=== PATIENT | female | born 1950 | race Caucasian/White ===

== ENCOUNTER 2019-08-22 07:46 | Outpatient (CLI) | payer MEDICARE, OTHER, SELFPAY ==
--- NOTE | 2019-08-22 07:52 | MM_ITS ---
WS: [id number] BILATERAL DIGITAL SCREENING MAMMOGRAPHY WITH CAD CLINICAL INFORMATION: SCREENING HISTORY: Screening mammogram. No current complaints. COMPARISON: May 30, 2017 TECHNIQUE: Bilateral CC and MLO views. FINDINGS: The breasts are composed of heterogeneous fibroglandular density tissue, which can limit the detectio n of small underlying mass lesions. Lucent centered calcifications. No suspicious mass, asymmetry, ca lcifications, or architectural distortion. No evidence of malignancy. MM/[place] [id number] IMPRESSION: BI-RADS: 2-Benign FOLLOW UP: 1 Year Follow-up Recommend return to annual screening mammography.
== END 2019-08-22 07:47 | disposition home or self-care (01) ==
LOC: RADSHAW 07:50
PROVIDERS: Family Provider Family Medicine; PCP Family Medicine; Visit Provider Family Medicine
DX: Z12.31 Encounter for screening mammogram for malignant neoplasm of breast (principal)
CPT/HCPCS: 77067

== ENCOUNTER 2020-09-24 14:04 | Outpatient (CLI) | payer MEDICARE, OTHER, SELFPAY ==
--- NOTE | 2020-09-24 14:14 | MM_ITS ---
WS: [id number] BILATERAL DIGITAL SCREENING MAMMOGRAPHY WITH CAD CLINICAL INFORMATION: SCREENING HISTORY: Screening mammogram. No current complaints. COMPARISON: August 22, 2019 TECHNIQUE: Bilateral CC and MLO views. FINDINGS: The breasts are composed of heterogeneous fibroglandular density tissue, which can limit the detectio n of small underlying mass lesions. No suspicious mass, asymmetry, calcifications, or architectural d istortion. No evidence of malignancy. Punctate and lucent centered calcifications. MM/[place] [id number] IMPRESSION: BI-RADS: 2-Benign FOLLOW UP: 1 Year Follow-up Recommend return to annual screening mammography.
== END 2020-09-24 14:05 | disposition home or self-care (01) ==
LOC: RADSHAW 14:06
PROVIDERS: PCP Family Medicine; Visit Provider Family Medicine
DX: Z12.31 Encounter for screening mammogram for malignant neoplasm of breast (principal)
CPT/HCPCS: 77067

== ENCOUNTER 2021-04-30 08:45 | Outpatient (CLI) | payer MEDICARE, OTHER, SELFPAY ==
--- NOTE | 2021-04-30 09:15 | XR_ITS ---
WS: [id number] KUB, AP view, 04/30/2021 Clinical Data: calculus of kidney Comparison: KUB, 04/30/2019. Findings: No abnormal intraabdominal masses are seen. There is no dilatated small bowel or evidence of obstruct ion. There are small calcifications overlying the inferior pole of the right kidney. The left kidney is ob scured by bowel gas. There is a dextroscoliosis. There are clips in the right upper quadrant from a c holecystectomy. XR/XR KUB [id number] Impression: Probable right renal calculi.
== END 2021-04-30 08:46 | disposition home or self-care (01) ==
PROVIDERS: PCP Family Medicine; Visit Provider Urology
DX: N20.0 Calculus of kidney (principal)
CPT/HCPCS: 74018; 81003

== ENCOUNTER → 2022-06-01 13:45 | Outpatient (BNVA) | payer MEDICARE, OTHER, SELFPAY | PROVIDERS: PCP Family Medicine; Visit Provider Internal Medicine Cardiovascular Disease | DX: R07.9 Chest pain, unspecified (principal); I51.81 Takotsubo syndrome; I25.10 Atherosclerotic heart disease of native coronary artery without angina pectoris; I25.2 Old myocardial infarction; I34.0 Nonrheumatic mitral (valve) insufficiency; Z86.73 Personal history of transient ischemic attack (TIA), and cerebral infarction without residual deficits | CPT/HCPCS: 93005; 99204 ==

== ENCOUNTER 2022-07-15 08:02 | Outpatient (CLI) | payer MEDICARE, OTHER, SELFPAY ==
--- NOTE | 2022-07-15 | ECG_ITS ---
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 Interpretive Statements NAME OF STUDY: EXERCISE SESTAMIBI STRESS TEST INDICATION: Chest pain Baseline blood pressure of 117/72 mm Hg, heart rate of 96 beats per minute. EKG showed sinus rhythm with normal ST-Ts. ??? The patient exercised for 7 minutes and 4 seconds on a [standard Stephen protocol]. Patient attained a maximum heart rate of 165 beats per minute( 110 % of the maximum predicted heart rate) with a blood pressure at the peak exercise of 173/60 mm Hg. The EKG at the peak exercise revealed sinus tachycardia with no significant ST and T wave changes . Patient did [not have any chest pain or any significant arrhythmis with the exercise]??? During the recovery phase, there were no new changes. ??? Blood pressure at the end of the recovery phase was 114/71 mm Hg with a heart rate of 105 beats per minute. ??? CONCLUSION: 1. Normal EKG response to treadmill exercise. 2. No exercise-induced chest pain or cardiac arrhythmia. 3. Excellent exercise tolerance, attained a maximum of 10.2 METs. 4. Baseline normal blood pressure with normal response to exercise. 5. Perfusion scan will be documented separately. Electronically Signed On 07-15-2022 15:57:41 REAL ESTATE CONSULTANT by Melisa Mackey M.D. [id number]
--- NOTE | 2022-07-15 09:12 | NMCV_ITS ---
NM caty perf SPECT r/s* [id number] Gabi Orozco Age: 71 Gender: F : 1950 Exam Date: 07/15/2022 09:11 Ordering Phys: Melisa Mackey MD ([email or web address]) Technologist: HECTOR Best Exam Location: [facility] Indications: CHEST PAIN STRESS TEST Please see separate stress test report in [facility] for full findings IMAGE PROTOCOL Rest/Stress 1 Exercise Day Radiopharmaceutical Dose (mCi) Administration Site Administered by Rest: Tc-99m 10.9 IV HECTOR Best Sestamibi Stress:Tc-99m 32.6 IV HECTOR Benavidez Sestamibi Rest: 15-Jul-2022 60 Discovery 630 Stress: 15-Jul-2022 30 Discovery 630 Radiopharmaceutical was injected at 100% maximum heart rate. Radiopharmaceutical was injected at __ % maximum heart rate. SPECT RESULTS Technical Quality: Excellent Raw Data Analysis: Normal Image Corrections: No attenuation or motion correction applied Summed Stress Score: 0 Summed Rest Score: 6 Summed Difference Score: 0 PERFUSION FINDINGS Small sized perfusion abnormality of mid inferior and mid inferolateral guevara on rest images with improved tracer uptake on stress images. FUNCTIONAL RESULTS (calculated via Gated SPECT) Stress Image LV EF (%): 84 Stress EDV (mL):32 TID: 0.65 Stress ESV (mL):5 FUNCTIONAL FINDINGS: The left ventricle is normal in size. Transient Ischemia Dilatation of 0.65. The left ventricular ejection fraction is normal with a value of 84%. There is hyperdynamic left ventricular wall thickening. IMPRESSIONS 1. Myocardial perfusion imaging is normal. 2. Overall left ventricular systolic function is normal without regional wall motion abnormalities, LVEF=84%. 3. EKG portion of the study will be reported separately. 4. Scan indicates low risk for cardiac events. Melisa Mackey MD (Electronically Signed) Final Date: 15 July 2022 15:13 S
[2022-07-15 09:23] VITALS: BMI 22.1
[2022-07-15 10:03] VITALS: BP 114/71; PULSE 105
== END 2022-07-15 08:03 | disposition home or self-care (01) ==
LOC: CDL 08:04
PROVIDERS: PCP Family Medicine; Visit Provider Internal Medicine Cardiovascular Disease
DX: R07.9 Chest pain, unspecified (principal)
CPT/HCPCS: 36415; 78452; 93017; A9500

== ENCOUNTER 2022-07-19 14:14 | Inpatient (IN) | payer MEDICARE, OTHER, SELFPAY ==
[2022-07-19] VITALS (13 sets, daily range): BP systolic 120–133; BP diastolic 67–77; PULSE 78–95; RESP 14–17; TEMP 36.4–36.5; O2SAT 91–98; BMI 22.1
--- NOTE | 2022-07-19 14:32 | XRR_ITS ---
PROCEDURE INFORMATION: Exam: XR Left Ankle Exam date and time: 07/19/2022 2:39 PM Age: 71 years old Clinical indication: Pain and injury or trauma; Fall; Sprain or strain; Ankle; Left; Additional info: Fall, ankle pain TECHNIQUE: Imaging protocol: Radiologic exam of the Left ankle. Views: 1 or 2 views. COMPARISON: No relevant prior studies available. FINDINGS: Bones/joints: Mildly displaced oblique fractures through the distal tibia and fibula. Soft tissues: Normal. XR/XR ankle LT 2V [id number] IMPRESSION: Mildly displaced fractures through the distal tibia and fibula.
--- NOTE | 2022-07-19 14:46 | ED_ITS ---
HPI - Extremity Problem General: Chief complaint: Extremity Injury, Lower Stated complaint: FALL/ FX LOWER LEG Time Seen by Provider: 07/19/22 14:32 History of Present Illness: This 71-year-old female presents to the ER for evaluation of left ankle injury that occurred just prior to arrival. She was going to see her mother and while walking down a slope, she slipped in the grass and heard a pop on the left ankle. She was unable to put weight on the ankle. There is obvious deformity there. Patient denies any other injuries. Associated symptoms: Deny chest pain Review of Systems Const: Denies: chills, body aches or change in appetite Eyes: Denies: change in vision or eye discharge ENMT: Denies: throat pain, dental pain or nasal discharge Card: Denies: chest pain or lightheadedness : Denies: dysuria Musc: Reports: joint pain (left ankle) and limited range of motion (left ankle); Denies: neck pain or back pain Neuro: Denies: headache(s) or weakness in extremities Psych: Denies: depression Earl/Lymph: Denies: easy bruising All/Imm: Denies: urticaria, tongue swelling or facial swelling PFSH ED PFSH: Medical History (Updated 07/19/22 @ 16:24 by Angle Tavarez MD) History of CVA (cerebrovascular accident) History of [place] (myocardial infarction) History of nonmelanoma skin cancer Mitral valve regurgitation Palpitations Renal stones Stress-induced cardiomyopathy Surgical History H/O section S/P cholecystectomy S/P hysterectomy Status post laser lithotripsy of ureteral calculus Family History Father , 86 leukemia CHF (congestive heart failure) Cancer Mother Blood clot in vein Social History Smoking and tobacco status: never smoked History of recent travel: No Physical Exam Const: COMMON NORMALS: no acute distress, patient oriented x3, no limitations and alert HENMT: COMMON NORMALS: normocephalic HEAD & SCALP: normocephalic Eye: COMMON NORMALS: EOMs intact bilaterally Neck/C-Spine: COMMON NORMALS: full ROM and supple Chest: COMMONS NORMALS: normal inspection of the chest Resp: COMMON NORMALS: normal respiratory effort, No retractions, No use of accessory muscles and clear to auscultation bilaterally AUSCULTATION: clear to auscultation bilaterally Cardio: COMMON NORMALS: regular rate, regular rhythm and No murmurs present (Cardio) RATE: regular rate RHYTHM: regular rhythm GI: COMMON NORMALS: Normal to inspection, nondistended, normoactive bowel sounds present and non-tender : COMMON NORMALS: Yes no CVA tenderness BLADDER/KIDNEY EXAM: Yes no CVA tenderness Back/Pelvis: COMMON NORMALS: no CVA tenderness and no thoracic nor lumbar tenderness Extremity: GENERAL: Yes normal exam except as noted LEFT LOWER EXTREMITY: Yes ankle joint Left ankle: Yes inspection (Deformity), Yes palpation (Tenderness on palpation), Yes ROM (Markedly diminished) and Yes neurovascular exam (No distal neurovascular deficit) Neuro: COMMON NORMALS: patient oriented x3 and no focal motor deficits SENSORIUM/ORIENTATION: Yes alert Psych: COMMON NORMALS: mental status grossly normal and cooperative Course Reevaluation(s): Reevaluation #1: Case discussed with Dr. Cottrell regarding the left distal tib-fib fracture. He r ecommends splinting the leg and getting a CT scan of the ankle. Time: 15:05 Reevaluation #2: CT ankle confirms a mildly displaced oblique fracture of the distal tibial metadiaphysis. There is also comminuted fracture of the distal fibular diaphysis by 1.[address] Cottrell recommended that patient be admitted under the hospitalist and he will plan to fix the fracture tomorrow. Vital Signs: Vital signs: Vital Signs Temperature 97.7 F 07/19/22 14:15 Pulse Rate 78 07/19/22 14:15 Respiratory Rate 14 07/19/22 14:15 Blood Pressure 125/71 07/19/22 15:30 Pulse Oximetry 91 07/19/22 16:00 Oxygen Delivery Me thod 07/19/22 14:15 MDM - Extremity (Nontraumatic) Medical Decision Making Medical decision making: Patient presents to the ER for evaluation following a mechanical fall. Imaging studies reveal fractures of the left distal tibia and fibula. Dr. Cottrell will take patient to the OR tomorrow. She will be admitted to the hospitalist service with n.p.o. from midnight. Lab Data Radiology Impressions Ankle X-Ray 07/19/22 14:32 IMPRESSION: Mildly displaced fractures through the distal tibia and fibula. Ankle CT 07/19/22 15:03 IMPRESSION: 1. Mildly displaced oblique fracture distal tibial metadiaphysis. 2. Indeterminate but suspicious for vertical fractures extending to the metal room dental technician ior tibial malleolus. 3. Comminuted fracture involving the distal fibular diaphysis by 1.5 cm. 4. Additional nondisplaced fracture distal fibular tip. Knee X-Ray 07/19/22 15:04 IMPRESSION: No fracture identified. Quality of this exam is suboptimal and nearly nondiagnostic. Discharge Plan Discharge Patient Disposition: Admitted As Inpatient Clinical Impression: Fracture of tibia with fibula, closed Qualifiers: Encounter type: initial encounter Laterality: left Qualified Code(s): S82.202A - Unspecified fracture of shaft of left tibia, initial encounter for closed fracture Condition: Stable Coding Level of Care Code ED Green Building Engineer for [facility] Fwd Exam Comprehensive
[2022-07-19] MEDS: ondansetron 2 mg/ML SDV 2 mL 4 MG IVP (14:47)
--- NOTE | 2022-07-19 15:03 | CT_ITS ---
WS: [id number] CT LEFT ANKLE, NONCONTRAST. 3-D. HISTORY: fall, ankle fracture Technique: All CT scans at [facility] use at least one of these dose optimization techniques: automated exposure control; mA and/or kV adjustment per patient size (includes targeted exams where dose is matched to clinical indication); or iterative reconstruction. DLP: 149.28 mGy.cm COMPARISON: Radiograph 07/19/2022 Oblique fracture through the distal tibia involving the diaphysis into the metaphysis. Separation rad ng the fracture line by 7 mm. There is air in the marrow cavity. Suspect there is an additional fract ure extending vertically to the distal tibial articular surface posteriorly. This is best seen on the coronal reformats. Oblique comminuted fracture displaced by 1.5 cm involving the distal fibular diaphysis. Additional fr acture through the very distal fibular tip. The talus and calcaneus are intact. Moderate soft tissue edema surrounding the fracture. CT/CT ankle LT wo con* [id number] IMPRESSION: 1. Mildly displaced oblique fracture distal tibial metadiaphysis. 2. Indeterminate but suspicious for vertical fractures extending to the archivist ior tibial malleolus. 3. Comminuted fracture involving the distal fibular diaphysis by 1.5 cm. 4. Additional nondisplaced fracture distal fibular tip.
--- NOTE | 2022-07-19 15:04 | XR_ITS ---
WS: [id number] LEFT KNEE: 2 VIEW(S) TECHNIQUE: AP and lateral. HISTORY: fall COMPARISON: None available. No obvious fracture identified. Nondiagnostic lateral projection. This is very limited evaluation due to overlying external material. Mild narrowing medial compartment. Joint effusion cannot be excluded due to technique. No soft tissue abnormality. XR/XR knee LT 1-2V [id number] IMPRESSION: No fracture identified. Quality of this exam is suboptimal and nearly nondiagno stic.
--- NOTE | 2022-07-19 16:13 | PM.MISC ---
Miscellaneous Note Purpose of Documentation: Brief orthopedic note update: Orthopedics was consulted for patient sustaining a left lower extremity injury on a slip and fall low energy. She is found to have in the emergency department a displaced left distal tibia fracture as well as distal fibula fracture. Patient recommended to be splinted nonweightbearing and CT scan performed. There does appear to be a fracture line that extends into the tibial plafond. The main fracture fragment does appear to be amenable for intramedullary nail fixation with plan for left soft tissue violation. Plan will be for patient to be admitted by the hospitalist service orthopedics consulted. Patient last ate per the emergency department roughly 11?12 today. We will go ahead and allow her to eat this evening and she should be n.p.o. at midnight with plan for surgical fixation as planned for earlier mobility to her ankle as well as earlier weightbearing and better clinical alignment. Emergency department has been updated. A full consult note will follow in the morning. Patient to be n.p.o. at midnight. Hold a.m. anticoagulation. Feel free to contact myself Dr. Cottrell for any questions or concerns. Gary Cottrell, DO/orthopedic surgery
--- NOTE | 2022-07-19 17:12 | P.HP_ITS ---
Providers/Chief Complaint Primary Care Provider: Efrain Mckeon DO Chief Complaint: FALL/ FX LOWER LEG History of Present Illness Gabi Orozco is a 71 year old female with a past medical history of stress- induced cardiomyopathy, recent history of low probability stress test, history of CVA x2, hyperlipidemia, vitamin D deficiency, history of mitral valve regurg, who presents to [facility] after she twisted her left ankle and heard a pop and has a left ankle fracture. In terms of her medical history she tells me that early in June her and her family had COVID, she is doing well from it now and she does not need oxygen, denies hitting her head, denies hitting her hip, she can bear weight on the left ankle, no recent fevers, no chills, no cough, no dysuria, no chest pain, no palpitations she took her Plavix this morning, no history of other blood thinners Review of Systems Const: Denies: fever(s), chills, fatigue or malaise Eyes: Denies: change in vision ENMT: Denies: nasal congestion Card: Denies: chest pain or palpitations Resp: Denies: dyspnea, productive cough, non-productive cough or wheezing GI: Denies: abdominal pain, nausea, vomiting or melena : Denies: flank pain, dysuria or urinary frequency Musc: Denies: neck pain or back pain Skin/Breast: Denies: rash Neuro: Denies: headache(s), dizziness or vertigo Psych: Denies: anxiety Endo: Denies: polyuria or polydipsia Medications/Allergies Home Medications Medication Instructions Recorded Confirmed Last Taken Type cholecalciferol (vitamin D3) 25 25 mcg PO DAILY 07/24/19 07/19/22 Unknown History mcg (1,000 unit) capsule clopidogrel 75 mg tablet (Plavix) 75 mg PO DAILY 07/24/19 07/19/22 Unknown History levetiracetam 500 mg tablet 500 mg PO BID 07/24/19 07/19/22 Unknown History metoprolol succinate 50 mg 25 mg PO DAILY 07/24/19 07/19/22 Unknown History tablet,extended release 24 hr (Toprol XL) multivitamin 1 tab PO DAILY 07/24/19 07/19/22 Unknown History spironolactone 25 mg tablet 25 mg PO DAILY 07/24/19 07/19/22 Unknown History (Aldactone) nitroglycerin 0.4 mg sublingual 0.4 mg sublingual Q5M PRN chest 10/08/19 07/19/22 Unknown Rx tablet (Nitrostat) pain 30 days #25 tabs folic acid 1 mg tablet 1 mg PO DAILY 04/29/21 07/19/22 Unknown History lorazepam 0.5 mg tablet 0.5 mg PO TID stress/muscle spasm 03/16/22 07/19/22 Unknown Rx #90 tabs atorvastatin 20 mg tablet 20 mg PO DAILY 07/19/22 07/19/22 Unknown History Allergies Allergy/AdvReac Type Severity Reaction Status Date / Time levofloxacin [From Levaquin] Allergy Mild Rash Verified 07/19/22 17:00 PFSH Acute PFSH: Medical History History of CVA (cerebrovascular accident) History of [place] (myocardial infarction) History of nonmelanoma skin cancer Mitral valve regurgitation Palpitations Renal stones Stress-induced cardiomyopathy Surgical History H/O section S/P cholecystectomy S/P hysterectomy Status post laser lithotripsy of ureteral calculus Family History Father , 86 leukemia CHF (congestive heart failure) Cancer Mother Blood clot in vein Social History Smoking and tobacco status: never smoked History of recent travel: No Vitals/I&O/Wt Last Vital Signs Temp 97.7 F 07/19/22 14:15 Pulse 78 07/19/22 14:15 Resp 14 07/19/22 14:15 BP 125/71 07/19/22 15:30 Pulse Ox 91 07/19/22 16:00 O2 Del Method 07/19/22 14:15 Weight last 48 hrs Weight 56.699 kg Physical Exam Const: COMMON NORMALS: no acute distress and patient oriented x3 HENMT: COMMON NORMALS: normocephalic HEAD & SCALP: normocephalic Eye: COMMON NORMALS: Equal, round and reactive pupils present and EOMs intact bilaterally Neck/C-Spine: COMMON NORMALS: no JVD Lymph: LYMPHATIC: no lymphadenopathy noted Resp: COMMON NORMALS: normal respiratory effort, No retractions, No use of accessory muscles and clear to auscultation bilaterally AUSCULTATION: clear to auscultation bilaterally Cardio: COMMON NORMALS: no JVD, regular rate, regular rhythm, S1 normal heart sound present and S2 normal heart sound present RATE: regular rate RHYTHM: regular rhythm HEART SOUNDS: S1 normal heart sound present and S2 normal heart sound present GI: COMMON NORMALS: Normal to inspection, nondistended, normoactive bowel sounds present, Soft to palpation and non-tender PALPATION: Yes Soft to palpation : COMMON NORMALS: Yes no CVA tenderness Extremity: COMMON NORMALS: no calf tenderness and no pedal edema Neuro: COMMON NORMALS: patient oriented x3 and CN's II-XII intact bilaterally Psych: COMMON NORMALS: mental status grossly normal A&P Assessment and plan (1) Fracture of tibia with fibula, closed: Qualifiers: Encounter type: initial encounter Laterality: left Qualified Code(s): S82.202A - Unspecified fracture of shaft of left tibia, initial encounter for closed fracture; S82.402A - Unspecified fracture of shaft of left fibula, initial encounter for closed fracture (2) History of CVA (cerebrovascular accident): (3) Mitral valve regurgitation: Qualifiers: Cardiac valve disease etiology: nonrheumatic Qualified Code(s): I34.0 - Nonrheumatic mitral (valve) insufficiency (4) Stress-induced cardiomyopathy: (5) History of [place] (myocardial infarction): (6) Goals of care, counseling/discussion: Plan Left ankle fracture -Keep left ankle elevated -Pain control morphine -Zofran for nausea -Hold Plavix morning of surgery -CBC, CMP, mag, Phos, INR, UA, EKG, chest x-ray pending -N.p.o. night, plans on surgery tomorrow morning -SCDs for DVT prophylaxis, Lovenox on hold as there is plans on surgery -Full code Hyperlipidemia History of stress-induced cardiomyopathy, [place], recently had a low probability stress test History of CVA Goals of care discussion, patient wants to be a full code Attestations Medical Necessity Statement*: Patient requires hospitalization, inpatient, greater than 2 midnights, for fall, left ankle fracture Coding Level of Care Code Acute Code for Chg Fwd Diagnoses Fracture of tibia with fibula, closed S82.202A; S82.402A Encounter type: initial encounter Laterality: left History of CVA (cerebrovascular accident) Z86.73 Mitral valve regurgitation I34.0 Cardiac valve disease etiology: nonrheumatic Stress-induced cardiomyopathy I51.81 History of [place] (myocardial infarction) I25.2 Goals of care, counseling/discussion Z71.89
--- NOTE | 2022-07-19 17:19 | ECG_ITS ---
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 Measurements Intervals [place] Rate: 78 P: 66 GA: 153 QRS: 67 QRSD: 78 T: 46 QT: 412 QTc: 470 Interpretive Statements SINUS RHYTHM Compared to ECG 12/09/2018 02:32:56 No significant changes Electronically Signed On 07-19-2022 19:55:24 CLAIMS ANALYST by Sunny Ashraf M.D. [id number]
--- NOTE | 2022-07-19 17:19 | XRR_ITS ---
PROCEDURE INFORMATION: Exam: XR Chest Exam date and time: 07/19/2022 5:23 PM Age: 71 years old Clinical indication: Injury or trauma; Fall; Fracture, traumatic; Other: Pre-op cxr for ankle surgery; Injury details: Ankle fracture today, cxr film for pre-op TECHNIQUE: Imaging protocol: Radiologic exam of the chest. Views: 1 view. COMPARISON: CR XR chest 1V [id number] 12/08/2018 7:56 PM FINDINGS: Lungs: Calcified granuloma in the right upper lung. Minor linear scarring in the left lung base. No consolidation. Pleural spaces: Unremarkable. No pleural effusion. No pneumothorax. Heart/Mediastinum: Unremarkable. No cardiomegaly. Bones/joints: Unremarkable. XR/XR chest 1V portable [id number] IMPRESSION: No acute findings.
[2022-07-19 17:26] LABS: Basophils # 0.1 10^3/uL (0.0-0.1); Basophils % 0.4 %; Eosinophils % 0.3 %; Hematocrit 41.8 % (37.0-47.0); Hemoglobin 13.8 g/dL (11.5-15.3); Lymphocytes % 8.4 %; Mean Corpuscular Hemoglobin 31.6 pg (28.0-34.0); Mean Corpuscular Volume 95.7 fl (81-99); Mean Platelet Volume 10.1 fL (7.4-10.4); Monocytes # 0.5 10^3/uL (0.2-0.9); Monocytes % 4.3 %; Neutrophils # 10.33 10^3/uL (1.8-7.7); Neutrophils % 86.3 %; Nucleated Red Blood Cells % 0 %; Platelet Count 197 10^3/cmm (130-400); Red Blood Count 4.37 10^6/uL (4.1-5.3); Red Cell Distribution Width 12.7 % (12.1-15.1)
[2022-07-19] MEDS: morphine 4 mg/mL SDV 1 mL IVP (17:27)
[2022-07-19 17:38] LABS: INR 0.99 (0.8-1.2)
[2022-07-19 17:54] LABS: Alanine Aminotransferase 18 U/L (0-33); Albumin Level 4.4 g/dL (3.5-5.2); Alkaline Phosphatase 91 U/L (35-105); Anion Gap 13.3 (5-19); Aspartate Amino Transferase 25 U/L (0-32); Blood Urea Nitrogen 14 mg/dL (8-23); Calcium 9.7 mg/dL (8.5-10.5); Carbon Dioxide 29 mmol/L (22-29); Chloride 101 mmol/L (98-107); Creatinine Clr Calc Pharmacy 55.1062; Globulin 3.1 g/dL (1.3-4.6); Glucose 128 mg/dL (65-115); NT Pro B Type Natriuretic Pept 67 pg/mL (0-125); Osmolality Calculated 290 mOsm/kg (285-295); Phosphorus 2.6 mg/dL (2.5-4.5); Potassium 4.3 mmol/L (3.5-5.1); Sodium 139 mmol/L (136-145); Total Bilirubin 0.7 mg/dL (0.15-1.2); Total Protein 7.5 g/dL (6.6-8.7)
[2022-07-19 18:10] LABS: Troponin(5th) Baseline 6 ng/L (0-10)
[2022-07-19 19:06] LABS: Chol HDL Ratio 3.68 mg/dL (0.0-4.40); Cholesterol 173 mg/dL (0-200); HDL Cholesterol 47 mg/dL (60-100); LDL Cholesterol Calculated 78 mg/dL (50-129); LDL HDL Ratio 1.66 RATIO (0.00-3.22); Thyroid Stimulating Hormone 2.84 uIU/mL (0.27-4.20); Triglycerides 240 mg/dL (0-150)
[2022-07-19 19:30] LABS: Estmated Average Glucose 108; Hemoglobin A1C 5.4 % (4.0-6.0)
[2022-07-19 20:14] LABS: Troponin 5 2HR Delta 0 ABS# (0-10)
[2022-07-19] MEDS: levETIRAcetam 500 mg Tablet PO (20:28)
[2022-07-19] MEDS: sodium chloride 0.9% 1,000 ML 75 ML IV (20:28)
--- NOTE | 2022-07-19 22:31 | ECG_ITS ---
[facility] Test Date: 2022-07-19 Pat Name: Gabi Orozco Department: Room: 260 Gender: Female Pump Installer: : 1950 Requested By: Josemanuel Riddle Order Number: [id number] Colette MD: Sunny Ashraf M.D. Measurements Intervals [place] Rate: 88 P: 64 NM: 140 QRS: 66 QRSD: 79 T: 49 QT: 377 QTc: 458 Interpretive Statements SINUS RHYTHM Compared to ECG 07/19/2022 17:42:16 No significant changes Electronically Signed On 07-19-2022 22:50:32 TWISTER FRAME TENDER by Sunny Ashraf M.D. [email or web address] [email or web address] [email or web address] hospitalCrispy [email or web address] Private Limitedohiohealth arthur g.h. bing, md, cancer centerTwirl TV/store/OM/[id number]
[2022-07-19] MEDS: LORazepam 0.5 mg Tablet PO (22:46)
[2022-07-19] MEDS: morphine 4 mg/mL SDV 1 mL 2 MG IVP (22:47)
[2022-07-19 23:40] LABS: Troponin 5 6HR Delta 0 ng/L (0-12)
[2022-07-20] VITALS (24 sets, daily range): BP systolic 110–144; BP diastolic 59–82; PULSE 88–110; RESP 16–18; TEMP 36.2–37.2; O2SAT 91–100
[2022-07-20] MEDS: morphine 4 mg/mL SDV 1 mL 2 MG IVP ×2 (03:08→08:26)
--- NOTE | 2022-07-20 03:42 | PC.NURSE ---
late entry 2000- lle splint in place, toes warm to touch, good capillary refill.
--- NOTE | 2022-07-20 03:43 | PC.NURSE ---
lle splint in place, toes warm to touch, slightly elevated on pillow at patients comfort.
[2022-07-20] MEDS: sodium chloride 0.9% 1,000 ML 75 ML IV (05:29)
[2022-07-20 05:30] LABS: Add Urine Microscopic? NO; Charge for UA Resulting for Rev
[2022-07-20 06:39] LABS: Bilirubin Urine Neg (Negative); Blood Urine Neg (Negative); Glucose Urine UA Norm (Normal); Ketones Urine Negative (Negative); Leukocyte Esterase Urine Negative (Negative); Nitrate Urine Negative (Negative); Protein Urine Neg (Negative); Urine Appearance Clear (CLEAR); Urine Color Yellow (Yellow); Urobilinogen Urine Norm (Negative); pH Urine 5 (5-7)
--- NOTE | 2022-07-20 07:03 | P.CONIM_ITS ---
Providers/Reason For Consult Consulting Physician/Specialty*: Gary Cottrell DO/orthopedic surgery Reason for Consult*: Left lower extremity fracture/fall left distal tibia and distal fibula fracture Requesting Physician: Dr. Tavarez Attending Physician: Josemanuel Riddle MD Primary Care Provider: Efrain Mckeon DO History of Present Illness History of Present Illness Gabi Orozco is a 71 year old female with a past medical history of CVA x2, hyperlipidemia, vitamin D deficiency, history of mitral valve regurg, who presents to [facility] after she slipped on ice yesterday and had injured her left lower extremity. States she felt a pop. Denies any loss of consciousness or hitting her head. She states she felt it was broken right away as she was unable to bear weight. Mild deformity noted. no recent fevers, no chills, no cough, no dysuria, no chest pain, no palpitations she took her Plavix yesterday which she is on for her stroke history., no history of other blood thinners Review of Systems General: Reports: 10 or more systems reviewed and unremarkable except in HPI and below Const: Denies: fever(s) or chills Card: Denies: chest pain Resp: Denies: dyspnea GI: Denies: abdominal pain Musc: Reports: extremity pain, extremity swelling and joint pain Medications/Allergies Home Medications Medication Instructions Recorded Confirmed Last Taken Type cholecalciferol (vitamin D3) 25 25 mcg PO DAILY 07/24/19 07/19/22 Unknown History mcg (1,000 unit) capsule clopidogrel 75 mg tablet (Plavix) 75 mg PO DAILY 07/24/19 07/19/22 Unknown History levetiracetam 500 mg tablet 500 mg PO BID 07/24/19 07/19/22 Unknown History metoprolol succinate 50 mg 25 mg PO DAILY 07/24/19 07/19/22 Unknown History tablet,extended release 24 hr (Toprol XL) multivitamin 1 tab PO DAILY 07/24/19 07/19/22 Unknown History spironolactone 25 mg tablet 25 mg PO DAILY 07/24/19 07/19/22 Unknown History (Aldactone) nitroglycerin 0.4 mg sublingual 0.4 mg sublingual Q5M PRN chest 10/08/19 07/19/22 Unknown Rx tablet (Nitrostat) pain 30 days #25 tabs folic acid 1 mg tablet 1 mg PO DAILY 04/29/21 07/19/22 Unknown History lorazepam 0.5 mg tablet 0.5 mg PO TID stress/muscle spasm 03/16/22 07/19/22 Unknown Rx #90 tabs atorvastatin 20 mg tablet 20 mg PO DAILY 07/19/22 07/19/22 Unknown History Allergies Allergy/AdvReac Type Severity Reaction Status Date / Time [facility] [[facility] Allergy Mild Rash Verified 07/19/22 17:00 Current Medications Generic Name Dose Route Start Last Admin Trade Name Freq PRN Reason Stop Dose Admin Sodium Chloride 1,000 mls @ 75 mls/hr 07/19/22 18:31 07/20/22 05:29 Sodium Chloride 0.9% IV 75 mls/hr .[id number] ARMEN Administration Levetiracetam 500 mg 07/19/22 19:00 07/19/22 20:28 Levetiracetam 500 Mg Tablet PO 500 mg BID ARMEN Administration Lorazepam 0.5 mg 07/19/22 21:00 07/19/22 22:46 Lorazepam 0.5 Mg Tablet PO 0.5 mg TID ARMEN Administration Morphine Sulfate 2 mg 07/19/22 18:31 07/20/22 03:08 Morphine 4 Mg/Ml Sdv 1 Ml IVP 2 mg Q4H PRN Administration SEVERE PAIN Pantoprazole Sodium 40 mg 07/19/22 18:31 07/20/22 05:49 Pantoprazole 40 Mg Sdv IVP Not Given Q12H ARMEN PFSH Acute PFSH: Medical History (Updated 07/20/22 @ 07:56 by Gary Cottrell DO) Fracture of distal end of tibia with fibula Fracture of posterior malleolus of left tibia History of CVA (cerebrovascular accident) History of [place] (myocardial infarction) History of nonmelanoma skin cancer Mitral valve regurgitation Palpitations Renal stones Stress-induced cardiomyopathy Surgical History H/O section S/P cholecystectomy S/P hysterectomy Status post laser lithotripsy of ureteral calculus Family History Father , 86 leukemia CHF (congestive heart failure) Cancer Mother Blood clot in vein Social History Smoking and tobacco status: never smoked History of recent travel: No Vitals/I&O/Wt Last Vital Signs Temp 99.0 F 07/20/22 04:00 Pulse 95 07/20/22 04:00 Resp 16 07/20/22 04:00 BP 133/71 07/20/22 04:00 Pulse Ox 94 07/20/22 04:00 O2 Del Method 07/20/22 04:00 07/19/22 07/20/22 07/20/22 22:59 06:59 14:59 Intake Total 120 / 120 676.25 / 796.25 Output Total 200 / 200 Balance 120 / 120 476.25 / 596.25 Weight last 48 hrs Weight 125 lb Physical Exam Narrative: Constitutional?alert and oriented, comfortable pain controlled HEENT?normocephalic atraumatic Respiratory?normal respiratory effect no retractions Cardio-peripheral pulses palpable Extremities/MSK?examination of patient's left lower extremity demonstrates posterior short leg splint on in place. Open booked and patient has mild swelling noted. Positive wrinkle sign at this point in time. Patient able to subtly wiggle toes. I am able to palpate the DP pulse which is 2+. She endorses slight decrease sensation at the SPN and DPN nerve distribution normal tibial saphenous and sural nerve distribution. Compartments are soft and compressible. No tenderness to palpation of the left knee. Tenderness palpa tion at fracture site of distal tibia and ankle and distal fibula. Negative logroll. Secondary survey examination normal with no range of motion of the bilateral upper extremity joints with normal range of motion no tenderness palpation or deformity as well as normal range of motion no tenderness palpation right lower extremity joints. Data 07/19/22 17:15 07/19/22 17:15 Xray Ortho: My impression: X-rays multiple views of the right ankle tibia as well as knee demonstrates a displaced oblique distal tibia fracture with no apparent extension into the ankle joint. Patient has over 25 mm of bone stock of the distal segment. Displaced spiral oblique fracture of the distal fibula as well as a small fracture of the tip of the distal fibula. Other CT: My impression: CT of the left ankle demonstrates a displaced oblique fracture of the distal tibia metaphyseal region measuring this is roughly 25 mm of bone stock of the distal segment. Spiral oblique fracture of the distal fibula as well as well as a nondisplaced fracture of the distal fibular tip. There does appear to be a ve rtical fracture that extends in the sagittal plane to the posterior malleolus into the tibial plafond. Radiologist's impression: IMPRESSION: ? 1.? Mildly displaced oblique fracture distal tibial metadiaphysis. 2.? Indeterminate but suspicious for vertical fractures extending to the posterior tibial malleolus. 3.? Comminuted fracture involving the distal fibular diaphysis by 1.5 cm. 4.? Additional nondisplaced fracture distal fibular tip. A&P Assessment and plan (1) Fracture of distal end of tibia with fibula: (2) Fracture of posterior malleolus of left tibia: Plan Nonweightbearing left lower extremity Posterior short leg splint Elevation and ice for pain and swelling Pain control Hold a.m. anticoagulation Worked up by internal medicine for medical management and preoperative clearance Plan for OR today for close reduction and percutaneous fixation posterior/medial malleolus, left distal tibia intramedullary nail, possible ORIF left distal fibula. Detail out the risk benefits complication alternatives surgical nonsurgical treatment options. Risk of surgery include but not limited to make a better make it worse, blood clot, heart attack, stroke, on table, injury to nerves or vessels, decreased ankle range of motion persistent pain, malunion, nonunion. Understanding these risks patient has been agreed to proceed with surgical intervention. All questions been answered at this time. She is been cleared by the internal medicine team to proceed with surgery today. We will take her back to the OR for surgical intervention. MDM: Patient is a 71-year-old female sustained an injury to the left lower extremity sustaining a distal tibia metaphyseal oblique fracture as well as a distal fibul a fracture. CT scan does demonstrate there is a fracture line extends into the sagittal plane into the posterior malleolus plan will be for fixation prior to intramedullary nailing. Bone stock of the distal fracture fragment has been measured and roughly 25 mm which would accommodate tibial nailing. At this point time her soft tissue envelope is amenable for surgical intervention and will evaluate the distal fibula, given this is a long spiral oblique fracture pattern and may help with length and reduction as well as given that this is unstable will likely need open reduction internal fixation as well. Patient understands and agrees to proceed with current plan. All questions answered. Understands given the fracture extends in ankle joint this will make her be nonweightbearing for roughly 6 weeks however with surgical intervention we can begin early ankle range of motion, hygiene as well as earlier mobility. Patient understands and agrees with current plan. All questions answered. Coding Level of Care Code Acute Code for [facility] Fwd Diagnoses Fracture of distal end of tibia with fibula S82.309A; S82.839A Fracture of posterior malleolus of left tibia S82.392A Time Spent (min) 50
--- NOTE | 2022-07-20 07:07 | XRR_ITS ---
PROCEDURE INFORMATION: Exam: XR Left Tibia and Fibula Exam date and time: 07/20/2022 7:14 AM Age: 71 years old Clinical indication: Injury or trauma; Fall; Blunt trauma; Lower leg; Left; Additional info: Distal tibia FX TECHNIQUE: Imaging protocol: Radiologic exam of the Left tibia and fibula. Views: 2 views. COMPARISON: CT ankle LT wo con* [id number] 07/19/2022 3:34 PM FINDINGS: Bones/joints: Improved alignment of the distal tibia fracture status post reduction. The distal fibular fracture demonstrates increased medial displacement of the distal fragment. Soft tissues: Normal. XR/XR tibia fibula LT 2V [id number] IMPRESSION: 1. Improved alignment of the distal tibia fracture status post reduction. 2. The distal fibular fracture demonstrates increased medial displacement of the distal fragment.
[2022-07-20] MEDS: metoprolol succinate ER (24 HR) 50 mg Tablet 25 MG PO (08:26)
[2022-07-20] MEDS: multivitamin therapeutic Tablet 1 TAB PO (08:27)
[2022-07-20] MEDS: LORazepam 0.5 mg Tablet PO ×2 (08:27→21:03)
[2022-07-20] MEDS: atorvastatin 40 mg Tablet 20 MG PO (08:27)
[2022-07-20] MEDS: spironolactone 25 mg Tablet PO (08:27)
[2022-07-20] MEDS: folic acid 1 mg Tablet PO (08:28)
[2022-07-20] MEDS: levETIRAcetam 500 mg Tablet PO ×2 (08:28→18:29)
--- NOTE | 2022-07-20 08:32 | W.PM.OPSUD ---
Surgery/Procedure H&P Update DATE OF PROCEDURE: July 20, 2022 DATE H&P PERFORMED: 07/20/22 CHANGES TO PREVIOUS DOCUMENTATION: None PREOP DIAGNOSIS: Left distal tibia fracture, Left distal fibula fracture PRIMARY INDICATION FOR PROCEDURE: Displaced left distal tibia fracture and left distal fibula fracture with fracture into posterior malleolus PLANNED PROCEDURE: Operation Date: 07/20/22 15:25 Proposed Procedures p IM Tibial Nail Insertion(Left) - Gary Cottrell DO s ORIF Fibula and CRPP posterior malleolus(Left) - Gary Cottrell DO
[2022-07-20] MEDS: pantoprazole 40 mg SDV IVP ×2 (10:26→18:29)
[2022-07-20] MEDS: ondansetron 2 mg/ML SDV 2 mL 4 MG IVP (10:26)
--- NOTE | 2022-07-20 10:30 | PC.CHAP ---
Pastoral Care Encounter/Spiritual Assessment Type of Contact [] Declined senior military analyst visit [] Patient/Family/Request visit [] Outpatient visit [] Follow-up visit [] Physician referral [] Code/Alert [x] Routine visit [] Staff referral [] Actively dying [] Patient sleeping [x] Family support [] [] Out of room [] Palliative care [] [] Receiving care in room [] Pre-surgical visit [] Trauma [] Long length of stay [] ICU visit [] Other: Relational/Emotional Strength [] Patient feels connected with others/family/visitors/staff [] Distress [] Loneliness/isolation [] Abandonment Spirituality of Patient [x] Person of Magda [] Attends Quaker of their Magda [] Believes in Prayer [] Reads Bible or Yazidism materials x [] There are Spiritual issues to be addressed Electronic Drafter Interventions x[] Prayer [x] Active listening [x] Non-anxious presence [x] Spiritual/emotional support [] Crisis/trauma care [] Spiritual counseling [] Bereavement support [] Provided bereavement packet [] Provided Bible/devotional materials [] Provided toy/stuffed animal, coloring book to patient or family member [] Provided Communion [] Anointing/[place] [] Salvation [x] Completed spiritual assessment [] Other: Impact on Illness or Injury [] Angry [] Fearful [] Anxious [] Often cries [] Exhaustion [] Unable to work [] Unable to attend moravian [] Unable to walk/stand [] Unable to read [] Unable to drive [] Unable to eat/drink [] Unable to sleep [] Unable to be with family [] Patient intubated [] Other: Summary Time spent with patient 10 min
--- NOTE | 2022-07-20 10:47 | P.PN_ITS ---
Subjective Subjective: Patient was seen this morning, at bedside, she is awaiting surgical intervention Vitals/I&O/Wt Last Vital Signs Temp 97.9 F 07/20/22 08:00 Pulse 88 07/20/22 08:00 Resp 16 07/20/22 08:00 BP 126/70 07/20/22 08:00 Pulse Ox 96 07/20/22 08:00 O2 Del Method 07/20/22 08:00 07/19/22 07/20/22 07/20/22 22:59 06:59 14:59 Intake Total 120 / 120 676.25 / 796.25 Output Total 200 / 200 Balance 120 / 120 476.25 / 596.25 Weight last 48 hrs Weight 56.699 kg Physical Exam Const: COMMON NORMALS: no acute distress and patient oriented x3 Resp: COMMON NORMALS: normal respiratory effort, No retractions, No use of accessory muscles and clear to auscultation bilaterally AUSCULTATION: clear to auscultation bilaterally Cardio: COMMON NORMALS: regular rate, regular rhythm, S1 normal heart sound present and S2 normal heart sound present RATE: regular rate RHYTHM: regular rhythm HEART SOUNDS: S1 normal heart sound present and S2 normal heart sound present GI: COMMON NORMALS: Normal to inspection, nondistended, normoactive bowel sounds present and non-tender Extremity: COMMON NORMALS: no pedal edema Neuro: COMMON NORMALS: patient oriented x3 Psych: COMMON NORMALS: mental status grossly normal Data 07/19/22 17:15 07/19/22 17:15 A&P Assessment and plan (1) Fracture of distal end of tibia with fibula: (2) Fracture of posterior malleolus of left tibia: Plan Left ankle fracture -Keep left ankle elevated -Pain control morphine -Zofran for nausea -For surgery today -Resume Plavix tonight -SCDs for DVT prophylaxis, Lovenox on hold as there is plans on surgery -Full code Hyperlipidemia History of stress-induced cardiomyopathy, PR, recently had a low probability stress test History of CVA Goals of care discussion, patient wants to be a full code Attestations Medical Necessity Statement*: Patient requires hospitalization for left ankle fracture Coding Level of Care Code Acute Code for [facility] Fwd Diagnoses Fracture of distal end of tibia with fibula S82.309A; S82.839A Fracture of posterior malleolus of left tibia S82.392A
[2022-07-20] MEDS: scopolamine 1.5 Patch 1 PATCH TRANSDERMA (11:06)
[2022-07-20] MEDS: ceFAZolin 2,000 MG in sodium chloride 0.9% (plus) 50 ML 100 MG IV ×2 (11:18→18:30)
--- NOTE | 2022-07-20 11:27 | P.ANESASSM_ITS ---
Pre-Anesthetic Assessment Height/Weight: Height 1.6 m Weight 56.699 kg Temp Pulse Resp BP Pulse Ox O2 Del Method 97.9 F 88 16 126/70 96 07/20/22 08:00 07/20/22 08:00 07/20/22 08:00 07/20/22 08:00 07/20/22 08:00 07/20/22 08:00 Preop Diagnosis: Left distal tibia fracture, Left distal fibula fracture Operation Date: 07/20/22 15:25 Proposed Procedures p IM Tibial Nail Insertion(Left) - Gary [place], DO s ORIF Fibula and CRPP posterior malleolus(Left) - Gary [place], DO Familial anesthetic complications: none Was Beta Kathryn taken within 24 hours: N/A Was Clonidine taken within 24 hours: N/A Last intake: Intake Last Liquid Date 07/19/22 Last Liquid Time 17:00 Last Solid Date 07/19/22 Last Solid Time 12:00 Social No alcohol and No tobacco Exam alert, oriented x 3, clear to auscultation bilaterally and regular rate & rhythm Airway Submandibular: within normal limits Cervical ROM: within normal limits Mallampati: Class II Dentition: full CV/HEM Coronary Artery Disease and Myocardial Infarction Metabolic Thyroid Disease [facility] [place] Osteoarthritis/DJD inflammatory arthritis Neuropsych Cerebrovascular Accident, Deficit (vision issues) and Neuropathy (pain) Anesthetic Plan ASA status: 3 Anesthesia: General and Regional (specify below) (Discussed postop popliteal blk if difficult to control pain) Medications/Allergies Home Medications Medication Instructions Recorded Confirmed Last Taken Type cholecalciferol (vitamin D3) 25 25 mcg PO DAILY 07/24/19 07/19/22 Unknown His tory mcg (1,000 unit) capsule clopidogrel 75 mg tablet (Plavix) 75 mg PO DAILY 07/24/19 07/19/22 Unknown History levetiracetam 500 mg tablet 500 mg PO BID 07/24/19 07/19/22 Unknown History metoprolol succinate 50 mg 25 mg PO DAILY 07/24/19 07/19/22 Unknown History tablet,extended release 24 hr (Toprol XL) multivitamin 1 tab PO DAILY 07/24/19 07/19/22 Unknown History spironolactone 25 mg tablet 25 mg PO DAILY 07/24/19 07/19/22 Unknown History (Aldactone) nitroglycerin 0.4 mg sublingual 0.4 mg sublingual Q5M PRN chest 10/08/19 07/19/22 Unknown Rx tablet (Nitrostat) pain 30 days #25 tabs folic acid 1 mg tablet 1 mg PO DAILY 04/29/21 07/19/22 Unknown History lorazepam 0.5 mg tablet 0.5 mg PO TID stress/muscle spasm 03/16/22 07/19/22 Unknown Rx #90 tabs atorvastatin 20 mg tablet 20 mg PO DAILY 07/19/22 07/19/22 Unknown History Allergies Allergy/AdvReac Type Severity Reaction Status Date / Time levofloxacin [From [facility]] Allergy Mild Rash Verified 07/19/22 17:00 Current Medications Generic Name Dose Route Start Last Admin Trade Name Elkin PRN Reason Stop Dose Admin Atorvastatin Calcium 20 mg 07/20/22 09:00 07/20/22 08:27 Atorvastatin 40 Mg Tablet PO 20 mg DAILY ARMEN Administration Folic Acid 1 mg 07/20/22 09:00 07/20/22 08:28 Folic Acid 1 Mg Tablet PO 1 mg DAILY ARMEN Administration Sodium Chloride 1,000 mls @ 75 mls/hr 07/19/22 18:31 07/20/22 05:29 Sodium Chloride 0.9% IV 75 mls/hr .[id number] ARMEN Administration Sodium Chloride 1,000 mls @ 100 mls/hr 07/19/22 18:31 07/20/22 10:31 Sodium Chloride 0.9% IV Not Given .Q10H ARMEN Cefazolin Sodium 2,000 mg/ 50 mls @ 100 mls/hr 07/20/22 11:04 07/20/22 11:18 Sodium Chloride IV 07/20/22 11:33 100 mls/hr PEARL CUTTER ONE Administration Protocol Levetiracetam 500 mg 07/19/22 19:00 07/20/22 08:28 Levetiracetam 500 Mg Tablet PO 500 mg BID ARMEN Administration Lorazepam 0.5 mg 07/19/22 21:00 07/20/22 08:27 Lorazepam 0.5 Mg Tablet PO 0.5 mg TID ARMEN Administration Metoprolol Succinate 25 mg 07/20/22 09:00 07/20/22 08:26 Metoprolol Succinate Er (24 Hr) 50 Mg Tablet PO 25 mg DAILY ARMEN Administration Morphine Sulfate 2 mg 07/19/22 18:31 07/20/22 08:26 Morphine 4 Mg/Ml Sdv 1 Ml IVP 2 mg Q4H PRN Administration SEVERE PAIN Multivitamins Therapeutic 1 tab 07/20/22 09:00 07/20/22 08:27 Multivitamin Therapeutic Tablet PO 1 tab DAILY ARMEN Administration Ondansetron HCl 4 mg 07/19/22 18:31 07/20/22 10:26 Ondansetron 2 Mg/Ml Sdv 2 Ml IVP 4 mg Q8H PRN Administration vomiting, or N/V if npo Pantoprazole Sodium 40 mg 07/19/22 18:31 07/20/22 10:26 Pantoprazole 40 Mg Sdv IVP 40 mg Q12H ARMEN Administration Spironolactone 25 mg 07/20/22 09:00 07/20/22 08:27 Spironolactone 25 Mg Tablet PO 25 mg DAILY ARMEN Administration PFSH Anesthesia Medical History (Updated 07/20/22 @ 07:56 by Gary Cottrell DO) Fracture of distal end of tibia with fibula Fracture of posterior malleolus of left tibia History of CVA (cerebrovascular accident) History of [place] (myocardial infarction) History of nonmelanoma skin cancer Mitral valve regurgitation Palpitations Renal stones Stress-induced cardiomyopathy Surgical History H/O section S/P cholecystectomy S/P hysterectomy Status post laser lithotripsy of ureteral calculus Family History Father , 86 leukemia CHF (congestive heart failure) Cancer Mother Blood clot in vein Social History Smoking and tobacco status: never smoked History of recent travel: No Data Anesthesia 07/19/22 17:15 07/19/22 17:15 Short CBC 07/19/22 Range/Units 17:15 WBC 12.0 H (4.0-10.0) 10^3/uL Hgb 13.8 (11.5-15.3) g/dL Hct 41.8 (37.0-47.0) % MCV 95.7 (81-99) fl Plt Count 197 (130-400) 10^3/cmm Neut % (Auto) 86.3 % Neut # (Auto) 10.33 H (1.8-7.7) 10^3/uL BMP 07/19/22 17:15 Sodium 139 Potassium 4.3 Chloride 101 Carbon Dioxide 29 BUN 14 Creatinine 0.7 Glucose 128 H Calcium 9.7 Cardiac Enzymes 07/19/22 07/19/22 07/19/22 Range/Units 17:15 17:15 19:39 Troponin T Baseline 6 (0-10) ng/L Troponin T 120 Minute 6.00 (0-10) ng/L Delta Troponin T 0 (0-10) ABS# Troponin T Hi Sens 6Hr (0-10) ng/L Troponin T Hi Sens 6Hr Delta (0-12) ng/L NT-Pro-B Natriuret Pep 67 (0-125) pg/mL 07/19/22 Range/Units 22:49 Troponin T Baseline (0-10) ng/L Troponin T 120 Minute (0-10) ng/L Delta Troponin T (0-10) ABS# Troponin T Hi Sens 6Hr 6.00 (0-10) ng/L Troponin T Hi Sens 6Hr Delta 0 (0-12) ng/L NT-Pro-B Natriuret Pep (0-125) pg/mL Liver Function 07/19/22 Range/Units 17:15 Total Bilirubin 0.7 (0.15-1.2) mg/dL AST 25 (0-32) U/L ALT 18 (0-33) U/L Alkaline Phosphatase 91 (35-105) U/L Albumin 4.4 (3.5-5.2) g/dL Urine 07/20/22 Range/Units 05:00 Urine Color Yellow (Yellow) Urine Appearance Clear (CLEAR) Urine pH 5 (5-7) Ur Specific Brogan 1.020 (1.005-1.030) Urine Protein Neg (Negative) Urine Glucose (UA) Norm (Normal) Urine Ketones Negative (Negative) Urine Nitrate Negative (Negative) Urine Bilirubin Neg (Negative) Ur Leukocyte Esterase Negative (Negative) Coags 07/19/22 17:15 PT 13.40 INR 0.99 Cardiac Studies: Sestamibi Stress Test (Cardiology) 07/15
--- NOTE | 2022-07-20 12:25 | SUR.OPER ---
Called and notified of surgical progress.
--- NOTE | 2022-07-20 13:43 | SUR.OPER ---
Called and notified him of surgical progress.
--- NOTE | 2022-07-20 13:58 | XR_ITS ---
WS: [id number] C-[facility] RADIOGRAPHS LEFT TIBIA FIBULA; 11 IMAGES HISTORY: OR PICS COMPARISON: 07/20/2022 Intraoperative imaging during intramedullary rodding of tibia and distal fibular plate and screw fixa tion. Fractures in good position alignment. XR/XR tibia fibula LT 2V [id number] IMPRESSION: Intraoperative imaging during ORIF tibial and fibular fractures.
--- NOTE | 2022-07-20 14:42 | P.OP_ITS ---
Brief Operative Note Date of procedure: 07/24/22 Pre-op diagnosis: Left distal tibia fracture, left distal fibula fracture Post-op diagnosis: same (With extension into posterior malleolus fracture) Procedure Done: Left distal fibula open reduction internal fixation Left posterior malleolus closed reduction and percutaneous screw fixation Left distal tibia open reduction internal fixation with intramedullary nail Surgeon: Gary Cottrell Estimated blood loss (mL): 100 Complications: None Post-op Plan: Patient taken to PACU in stable condition. Recovering well. Patient will return to the floor postoperatively. We will be nonweightbearing to the left lower extremity. Posterior short leg splint on in place. PT/OT. Postoperative antibiotics. Elevation and ice. DVT prophylaxis. Internal medicine on board for medical management. Orthopedics will continue to monitor. We will follow- up with me in the office in 2 weeks. Condition: stable Disposition: floor Coding Level of Care Code Acute Code for [facility]
--- NOTE | 2022-07-20 14:43 | PM.PACU ---
PACU note Narrative: Patient taken to PACU in stable condition. Recovering well. Patient's dressings are clean dry and intact. She is able to wiggle her toes splint limits examination for plantarflexion and dorsiflexion of the ankle. She endorses sensation intact light touch of the toes as well as SPN and DPN nerve distribution. DP pulses palpable. Toes are warm well perfused. Exam: awake Disposition: back to floor
--- NOTE | 2022-07-20 14:43 | PM.OP ---
Operative Report Date of procedure: July 20, 2022 Pre-op diagnosis: Preop Diagnosis Left distal tibia fracture, Left distal fibula fracture Post-op diagnosis: Left distal tibia fracture with extension into posterior malleolus Left distal fibula fracture Procedure done: Left distal fibula open reduction internal fixation Left posterior malleolus closed reduction and percutaneous screw fixation Left distal tibia open reduction internal fixation with intramedullary nail Implants: Cassie tibial nail 9 mm x 315 mm Proximal screws: 5 mm x 35 mm, 5 mm x 37.5 mm Distal screws: Advanced locking screws 5 mm x 47.5 mm, 5 mm x 37.5 mm Endcap: +10 mm Neihart anatomic distal fibula plate 7 hole 2.7 mm x 60 mm lag screw Total of 3 nonlocking screws Total of 4 locking screws Percutaneous screw fixation of posterior malleolus fracture 4.0 mm partially-threaded cannulated screw x 38 mm (medial to lateral) 4.0 mm partially-threaded cannulated screw x 40 mm entheses medial to lateral) 4.0 mm x 30 mm partially-threaded cannulated screw and anterior to posterior direction for poller blocking screw Surgeon: Gary Cottrell DO Estimated blood loss: 100 mL 60 minutes for left distal fibula open reduction internal fixation and closed reduction percutaneous screw fixation posterior malleolus Tourniquet deflated prior to tibial fixation IV fluids: See anesthesia record Urine output: See anesthesia record Complications: None Findings: See operative report narrative Condition: stable Disposition: floor Brief History: Patient was seen and evaluated at [facility] emergency department after she sustained a slip on the ice and broke her left distal tibia and distal fibula. She was seen and worked up in the emergency department found to have subsequent fracture. Internal medicine was on board to admit patient as primary. Orthopedics was consulted. I was consulted for evaluation and treatment recommendations of her fracture. Patient is a fairly active 71-year-old female and ambulates is a community ambulator at baseline. Injury was closed and neurovascular intact. We talked about her treatment options as far as nonoperative and operative intervention. In order for improved length alignment rotation as well as earlier ankle mobility and can begin protected weightbearing at 6 weeks recommended surgical intervention of left distal tibia and left distal fibula fracture. In preoperative planning there is a CT of the left ankle which did show a fracture line in the posterior malleolus through the sagittal plane. Plan would be for fixation of this prior to an intramedullary tibial nail which there was enough distal bone block to accommodate at least 2 screw fixation distally. We talked about surgical intervention of the left distal fibula as well and ultimately given the slow distal fibula fracture long spiral oblique with significant displacement plan would be for left distal fibula open reduction internal fixation to help add to reduction of the left distal tibia prior to intramedullary nail. Plan would be for close reduction and cannulated screw fixation of the posterior malleolus nondisplaced fracture line prior to nail insertion. Given the extension into the tibial plafond and we will keep patient nonweightbearing for 6 weeks. Patient understands the risk benefits complications alternatives to surgical and nonsurgical treatment options. She understands her risks and she through shared decision making elects to proceed with surgical intervention. All questions answered. Procedure: Patient was seen and evaluated in the preoperative holding area. Consent was reviewed and signed with patient. All questions were answered preoperatively. at bedside. The correct extremity was marked. Anesthesia seen evaluated patient once cleared for surgery and was medically optimized by the internal medicine team patient was then taken back to the operative suite. She was placed in supine position. All bony prominences well-padded patient was appropriately secured to the bed. She underwent anesthesia per the anesthesia department. The left ipsilateral hip was then placed with a bump and a bone foam was applied to the left lower extremity. A nonsterile tourniquet applied to the left thigh. Once appropriately anesthetized the left lower extremity was then prepped and draped in standard orthopedic fashion. Final timeout performed. Patient received appropriate preoperative antibiotics. Esmarch tourniquet was used exsanguinate the left lower extremity. Tourniquet was insufflated to 250 mmHg. A standard direct lateral approach was made to the left distal fibula with plan for ORIF distal fibula first to cd mixer helper with distal tibia reduction prior to nail as well as ability to clamp distal tibia fracture site through this incision. Patient did have positive wrinkle sign throughout the left lower extremity making this accommodating for a incision laterally. Incision was made centered over the long oblique fracture of the distal fibula. Care was made to protect the SPN nerve. I then utilized a oliver face elevator to elevate the periosteum off the distal fibula. There is a significant mount of displacement of distal fibula fracture with interposed muscle belly. This was then freed of debris and I used sharp scalpel excision to clear off the cortical bone to obtain an appropriate anatomic read for anatomic reduction and appropriate fibular length and rotation. Patient did have a small fragment of comminution on the medial aspect of the distal fibula this was interposed within the canal inhibiting an appropriate anatomic reduction this was then fished out as this was freed of periosteum this was morselized and used for grafting in this area. Used [id number] reduction clamp to obtain anatomic reduction once I was satisfied with this this was confirmed to be appropriate fibular length and anatomic reduction on large C arm. I then placed this was appropriate for lag screw fixation subsequently drilled and placed an interfragmentary lag screw in standard fashion. This held my reduction clamp was then subsequently removed and I placed and elected selected a 7 hole distal fibular anatomic plate of [employer]'s. This was confirmed to be in appropriate position and multiple orthogonal images and I subsequently drilled a nonlocking screw proximally to bring the plate to bone as well as distally to secure the plate to bone distally. Once I was satisfied with my appropriate plate placement and maintenance of reduction this plate was placed in neutralization fashion and I subsequently made a combination of locking and nonlocking screws to complete this construct. And a total of 4 screws distally and 3 screws proximally with an interfragmentary screw. This completed distal fibula fixation which did aid in the distal tibia reduction. This point time thorough irrigation the wound bed was made. Next I utilized a tenaculum reduction clamp and was able to keep it in a appropriate reduction just making a small percutaneous stab on the medial aspect over the distal tibia fracture sites and clamped in anatomic reduction of the distal tibia fracture. While this was held in place I then transitioned to close reduction and percutaneous screw fixation of the posterior malleolus fracture line. Plan was to place this right above the level of the physis and medial to lateral fashion to provide blocking screws in chcf for the nail from an anterior to posterior placement. This fracture line was in the sagittal plane extending into the posterior malleolus and these 2 screws would lag this and fashion prior to nail fixation. I subsequently utilized Neihart's 4 oh cannulated screw set with partially-threaded cannulated screws. 2 K wires were then placed in parallel fashion for starting with my anterior wire and then posterior wire. This was then placed under direct fluoroscopic imaging to be parallel with the joint and directly across the fracture line and to be in appropriate depth. Once this was confirmed to be appropriate position I then subsequently drilled the near cortex took an appropriate measurement and 2x 4.0 cannulated locking screws were then subsequently placed with excellent screw fixation and purchase. This completed the posterior malleolus fixation. Next the tourniquet was deflated. Hemostasis satisfactory. Next I began with the suprapatellar nail for the tibial fracture. Small incision made longitudinally above the superior pole of patella sharp scalpel incision through skin and subcutaneous tissue. I mobilized the fat off of the quad tendon this was split longitudinally directly into the knee joint. This was then evacuated of synovial fluid and subsequently entered [employer]'s suprapatellar nail guide device and then placed my starting guidewire and appropriate position which was confirmed and AP and lateral planes to be in appropriate position just medial to lateral tibial spine and just off the articular margin anteriorly. Once this was confirmed to be in appropriate position I then placed my opening reamer and then subsequently inserted the long ball-tipped guidewire which was then impacted directly onto the physis. This is excellent center center position between the 2 cannulated screws from an anterior to posterior sagittal view however on AP the wire remained medial. As result I then subsequently placed a polar blocking 4 oh cannulated screw on the medial aspect to encourage the nail to go laterally. Small stab incision blunt dissection with a hemostat directly onto bone of the anterior tibia in the metaphyseal area on the medial side was then confirmed with fluoroscopic imaging I inserted the cannulated guidewire which then was advanced and confirmed to be in appropriate position took an appropriate measurement cleared out the near cortex with cannulated drill bit and placed an additional 4 oh cannulated screws anterior to posterior plane as a polar blocking screw. At this point my ball-tipped guidewire was in center center position appropriately and set for reaming. I then took a measurement and the nail was confirmed to be 315 mm in length. On my tenaculum clamp at the distal tibia was held in place I then subsequently reamed up to a 10-1/2 mm reamer which had excellent chatter and plan for a 9 mm nail. Reduction was maintained throughout reaming this was then subsequently opened on the back table and attached to the solid waste technician guide. While my diagnostic assistant stabilized the foot I then subsequently impacted the nail to appropriate depth the nail was in center center position with maintenance of anatomic reduction. I then locked the screw proximally with the cannulated targeting guide. First started with my static locking screw which was then subsequently small stab incision blunt hemostat directly onto bone subsequently drilled measured and placed in appropriate length proximal locking screw. Next I placed an additional proximal locking screw in the subsequent same fashion this was placed in the dynamic hole. Screw was then subsequently placed and had excellent fixation this completed the proximal fixation. I then transitioned to my distal screw fixation which plan was for perfect elem technique. I subsequently utilizing perfect elem technique with fluoroscopic imaging made a small stab incision to lock the screw from medial to lateral of my distalmost screw this was subsequently drilled measured and appropriate length screw was then subsequently placed and had excellent fixation. I did utilize [employer]'s advanced locking technology for added fixation given the distal nature of this fracture. Next I placed an additional advanced locking screw from anterior to posterior which a small stab incision was made blunt dissection with hemostat directly onto bone and inserted the drill bit and subsequently drilled measured and placed in appropriate length screw utilizing perfect elem technique from anterior to posterior. At this point time it was evident my most proximal distal locking screw was at the level of the fracture site and the screw would anterior right through the fracture site. At this point decision was made to not add an additional third screw as this I feel would affect the fracture healing as a screw would be going straight through the fracture site. This completed my distal fixation. I then subsequently stressed the ankle and the syndesmosis was found to be stable. I then subsequently removed the targeting guide proximally and the nail was slightly subsided within the proximal tibia I then elected to place a +10 mm end cap to leave this at an appropriate length and for possible removal if ever needed. This point time wound beds were then thoroughly irrigated. Hemostasis was satisfactory. I then subsequently closed the incisions in standard fashion. Lateral incision was closed with interrupted 2-0 Vicryl suture and jyoti. The proximal incision was then closed with deep 0 Vicryl 2-0 Vicryl and jyoti for skin. The small percutaneous incisions were then closed with staple incision sites were then dressed with Xeroform 4 x 4's ABD Curlex soft roll and cast padding a posterior Ortho-Glass short leg splint was then applied. Patient was then subsequently awakened from anesthesia and taken the PACU in stable condition. Patient tolerated procedure without complications. Disposition:Patient taken to PACU in stable condition.? Recovering well.? Patient will return to the floor postoperatively.? We will be nonweightbearing to the left lower extremity.? Posterior short leg splint on in place.? PT/OT.? Postoperative antibiotics.? Elevation and ice.? DVT prophylaxis.? Internal medicine on board for medical management.? Orthopedics will continue to monitor.? We will follow-up with me in the office in 2 weeks.
--- NOTE | 2022-07-20 15:58 | ANE.PACU2 ---
Inpatient post-anesthesia follow up: Airway intact: Yes Vital signs: Temperature 97.2 F Pulse Rate 93 Respiratory Rate 18 Blood Pressure 135/63 Pulse Oximetry 94 Oxygen Delivery Me thod Room Air Oxygen Flow Rate 6 Fraction of Inspir ed Oxygen Hydration adequate: Yes Nausea and vomiting: No Pain level: 3 Mental status: Baseline
[2022-07-20] MEDS: docusate sodium 100 mg Capsule PO (18:29)
[2022-07-20] MEDS: calcium carb-vit d 600mg/400unit 1 Tablet 1 EACH PO (18:29)
[2022-07-20] MEDS: clopidogrel 75 mg Tablet PO (21:02)
[2022-07-20] MEDS: TRAMadol 50 mg Tablet PO (21:22)
[2022-07-21] VITALS (7 sets, daily range): BP systolic 93–112; BP diastolic 54–70; PULSE 87–92; RESP 16; TEMP 36.5–36.7; O2SAT 93–100
[2022-07-21] MEDS: ceFAZolin 2,000 MG in sodium chloride 0.9% (plus) 50 ML 100 MG IV (03:21)
[2022-07-21] MEDS: sodium chloride 0.9% 1,000 ML 75 ML IV (03:21)
[2022-07-21] MEDS: sodium chloride 0.9% 1,000 ML 100 ML IV (03:56)
[2022-07-21] MEDS: enoxaparin 30 mg/0.3 mL Syringe SUBCUT (03:56)
--- NOTE | 2022-07-21 04:52 | PC.NURSE ---
patient has done well t/o night, rested quietly, bp soft, but patient states this is normal bp for her unless she is in pain, lle wrap dry and intact, toes pink/warm to touch. remains at bedside.
[2022-07-21] MEDS: pantoprazole 40 mg SDV IVP (05:52)
--- NOTE | 2022-07-21 06:30 | XRR_ITS ---
PROCEDURE INFORMATION: Exam: XR Left Tibia and Fibula Exam date and time: 07/21/2022 6:18 AM Age: 71 years old Clinical indication: Device placement; Other: Tibia and fibula orif; Prior surgery; Surgery date: Post-operative (0-2 days); Additional info: Postop tibia and fibula orif TECHNIQUE: Imaging protocol: Radiologic exam of the Left tibia and fibula. Views: 2 views. COMPARISON: OT XR tibia fibula LT 2V [id number] 07/20/2022 12:55 PM FINDINGS: Tubes, catheters and devices: Distal fibula surgical plate and screw fixation. Bones/joints: Intramedullary nail in the tibia. No loosening. Nondisplaced oblique fracture lucency of distal tibial diaphysis. Nondisplaced fibula diaphyseal fracture lucency. Soft tissues: Scattered skin jyoti. Soft tissue air of the anterior distal thigh. XR/XR tibia fibula LT 2V [id number] IMPRESSION: Surgically fixated distal tibia and fibula diaphyseal fractures with unremarkable alignment.
--- NOTE | 2022-07-21 07:08 | PC.NURSE ---
olivares cath removed, intact, patient tolerated well.
--- NOTE | 2022-07-21 07:38 | PM.PN ---
Subjective Subjective: Patient seen and examined this morning patient resting comfortably at bedside. present. Patient is able to wiggle toes. Splint on in place dressings clean dry and intact. Overall pain well controlled with medications. No issues overnight. Vitals/I&O/Wt Last Vital Signs Temp 98.1 F 07/21/22 04:00 Pulse 92 07/21/22 04:00 Resp 16 07/21/22 04:00 BP 93/54 07/21/22 04:00 Pulse Ox 95 07/21/22 04:00 O2 Del Method 07/21/22 04:00 O2 Flow Rate 6 07/20/22 14:33 07/20/22 07/21/22 07/21/22 22:59 06:59 14:59 Intake Total 150 / 1300 Output Total 825 / 1455 250 / 1705 Balance -675 / -155 -250 / -405 Weight last 48 hrs Weight 125 lb Physical Exam Narrative: Examination left lower extremity dressing on in place with posterior short leg splint. Dressings clean dry and intact. Patient is able to wiggle toes sensation intact light touch to the toes as well as SPN and DPN nerve distribution rest of motor and sensory limited secondary to splint. Able to palpate DP pulse. Toes warm well perfused. Urinary Catheter Management: Alejandro Latex: Cath Placed During This Visit: yes Reason for Continuing Indwelling Catheter: Perioperative Use in Selected Surgeries Urinary Catheter Date of Insertion: 07/20/22 Urinary Catheter Time of Insertion: 11:38 Data 07/19/22 17:15 07/19/22 17:15 Xray Ortho: My impression: X-ray 2 views of the tib-fib demonstrate distal tibia and fibula satisfactory reduction alignment with intramedullary nail percutaneous screw fixation as well as ORIF left distal fibula. A&P Assessment and plan (1) Fracture of posterior malleolus of left tibia: (2) Fracture of distal end of tibia with fibula: Plan Nonweightbearing left lower extremity PT/OT DVT prophylaxis Internal medicine is primary X-rays reviewed stable ORIF Pain control Resume regular diet Orthopedics will continue to follow Leave dressing on in place only change if saturated Okay for full range of motion as tolerated to the left knee. Attestations Medical Necessity Statement*: Ongoing care of closed left distal tibia and fibula fracture status post surgery Coding Level of Care Code Acute Code for Chg Fwd Diagnoses Fracture of posterior malleolus of left tibia S82.392A Fracture of distal end of tibia with fibula S82.309A; S82.839A Time Spent (min) 20
[2022-07-21] MEDS: spironolactone 25 mg Tablet PO (09:31)
[2022-07-21] MEDS: calcium carb-vit d 600mg/400unit 1 Tablet 1 EACH PO (09:31)
[2022-07-21] MEDS: docusate sodium 100 mg Capsule PO (09:31)
[2022-07-21] MEDS: multivitamin therapeutic Tablet 1 TAB PO (09:31)
[2022-07-21] MEDS: folic acid 1 mg Tablet PO (09:31)
[2022-07-21] MEDS: atorvastatin 40 mg Tablet 20 MG PO (09:31)
[2022-07-21] MEDS: LORazepam 0.5 mg Tablet PO (09:31)
[2022-07-21] MEDS: levETIRAcetam 500 mg Tablet PO (09:32)
--- NOTE | 2022-07-21 10:18 | P.DS_ITS ---
Discharge Providers Date of Admission: 07/19/22 16:25 Date of Discharge: July 21, 2022 Attending Provider at Admission: Josemanuel Riddle MD Attending Provider at Discharge: Josemanuel Riddle MD Primary Care Provider: Efrain Mckeon DO Diagnoses at Discharge Discharge Diagnosis (1) Fracture of posterior malleolus of left tibia: Status: Acute (2) Fracture of distal end of tibia with fibula: Status: Acute Reason for Visit Reason for Visit: FALL/ FX LOWER LEG Hospital Course Hospital Course Gabi Orozco is a 71 year old female with a past medical history of stress- induced cardiomyopathy, recent history of low probability stress test, history of CVA x2, hyperlipidemia, vitamin D deficiency, history of mitral valve regurg, who presents to [facility] after she twisted her left ankle and heard a pop and has a left ankle fracture.? In terms of her medical history she tells me that early in June her and her family had COVID, she is doing well from it now and she does not need oxygen, denies hitting her head, denies hitting her hip, she can bear weight on the left ankle, no recent fevers, no chills, no cough, no dysuria, no chest pain, no palpitations she took her Plavix this morning, no history of other blood thinners Patient was admitted to [facility] for fracture of distal end of tibia with fibula, fracture of posterior malleolus of left tibia, status post surgical intervention by Dr. Cottrell. Discharged home home with instructions on nonweightbearing left lower extremity, short leg splint, Lovenox for DVT prophylaxis, oxycodone to be used sparingly for pain, follow-up with Dr. Cottrell in 2 weeks, home health care. Physical Exam Const: COMMON NORMALS: no acute distress and patient oriented x3 Resp: COMMON NORMALS: normal respiratory effort, No retractions, No use of accessory muscles and clear to auscultation bilaterally AUSCULTATION: clear to auscultation bilaterally Cardio: COMMON NORMALS: regular rate, regular rhythm, S1 normal heart sound present and S2 normal heart sound present RATE: regular rate RHYTHM: regular rhythm HEART SOUNDS: S1 normal heart sound present and S2 normal heart sound present GI: COMMON NORMALS: Normal to inspection, nondistended, normoactive bowel sounds present and non-tender Extremity: COMMON NORMALS: no pedal edema NARRATIVE EXTREMITY EXAM: Left lower extremity in the cast, has range of motion in her toes, no changes in sensation Neuro: COMMON NORMALS: patient oriented x3 Psych: COMMON NORMALS: mental status grossly normal Urinary Catheter Management: Alejandro Latex: Cath Placed During This Visit: yes Reason for Continuing Indwelling Catheter: Perioperative Use in Selected Surgeries Urinary Catheter Date of Insertion: 07/20/22 Urinary Catheter Time of Insertion: 11:38 Discharge Data Studies Completed and Pending Completed Studies During Hospitalization Category Date Time Status CT ankle LT wo con* [id number] Stat Cat Scan 07/19/22 15:03 Completed XR ankle LT 2V [id number] Stat Exams 07/19/22 14:32 Completed XR chest 1V portable [id number] Stat Exams 07/19/22 17:19 Completed XR knee LT 1-2V [id number] Stat Exams 07/19/22 15:04 Completed XR tibia fibula LT 2V [id number] Routine Exams 07/20/22 07:07 Completed XR tibia fibula LT 2V [id number] Routine Exams 07/20/22 13:58 Completed XR tibia fibula LT 2V [id number] Routine Exams 07/21/22 06:30 Completed Radiology Impressions Ankle X-Ray 07/19/22 14:32 IMPRESSION: Mildly displaced fractures through the distal tibia and fibula. Ankle CT 07/19/22 15:03 IMPRESSION: 1. Mildly displaced oblique fracture distal tibial metadiaphysis. 2. Indeterminate but suspicious for vertical fractures extending to the post erior tibial malleolus. 3. Comminuted fracture involving the distal fibular diaphysis by 1.5 cm. 4. Additional nondisplaced fracture distal fibular tip. Knee X-Ray 07/19/22 15:04 IMPRESSION: No fracture identified. Quality of this exam is suboptimal and nearly nondiagnos tic. Chest X-Ray 07/19/22 17:19 IMPRESSION: No acute findings. Tibia/Fibula X-Ray 07/21/22 06:30 IMPRESSION: Surgically fixated distal tibia and fibula diaphyseal fractures with unremarkable alignment. Laboratory Results WBC 12.0 10^3/uL (4.0-10.0) H 07/19/22 17:15 RBC 4.37 10^6/uL (4.1-5.3) 07/19/22 17:15 Hgb 13.8 g/dL (11.5-15.3) 07/19/22 17:15 Hct 41.8 % (37.0-47.0) 07/19/22 17:15 MCV 95.7 fl (81-99) 07/19/22 17:15 MCH 31.6 pg (28.0-34.0) 07/19/22 17:15 MCHC 33.0 g/dL (30.0-36.0) 07/19/22 17:15 RDW 12.7 % (12.1-15.1) 07/19/22 17:15 Plt Count 197 10^3/cmm (130-400) 07/19/22 17:15 MPV 10.1 fL (7.4-10.4) 07/19/22 17:15 Neut % (Auto) 86.3 % 07/19/22 17:15 Lymph % (Auto) 8.4 % 07/19/22 17:15 [place] % (Auto) 4.3 % 07/19/22 17:15 Eos % (Auto) 0.3 % 07/19/22 17:15 Baso % (Auto) 0.4 % 07/19/22 17:15 Neut # (Auto) 10.33 10^3/uL (1.8-7.7) H 07/19/22 17:15 Lymph # (Auto) 1.0 10^3/uL (0.8-4.8) 07/19/22 17:15 [place] # (Auto) 0.5 10^3/uL (0.2-0.9) 07/19/22 17:15 Eos # (Auto) 0.0 10^3/uL (0.0-0.8) 07/19/22 17:15 Baso # (Auto) 0.1 10^3/uL (0.0-0.1) 07/19/22 17:15 Nucleated RBC % (auto) 0 % 07/19/22 17:15 Nucleated RBCs # 0.0 /100WBC 07/19/22 17:15 PT 13.40 SECONDS (12.1-14.9) 07/19/22 17:15 INR 0.99 (0.8-1.2) 07/19/22 17:15 Sodium 139 mmol/L (136-145) 07/19/22 17:15 Potassium 4.3 mmol/L (3.5-5.1) 07/19/22 17:15 Chloride 101 mmol/L (98-107) 07/19/22 17:15 Carbon Dioxide 29 mmol/L (22-29) 07/19/22 17:15 Anion Gap 13.3 (5-19) 07/19/22 17:15 BUN 14 mg/dL (8-23) 07/19/22 17:15 Creatinine 0.7 mg/dL (0.5-0.9) 07/19/22 17:15 GFR Calculation Not Reportable 07/19/22 17:15 Glucose 128 mg/dL (65-115) H 07/19/22 17:15 Estimat Average Glucose 108 07/19/22 17:15 Hemoglobin A1c 5.4 % (4.0-6.0) 07/19/22 17:15 Calculated Osmolality 290 mOsm/kg (285-295) 07/19/22 17:15 Calcium 9.7 mg/dL (8.5-10.5) 07/19/22 17:15 Phosphorus 2.6 mg/dL (2.5-4.5) 07/19/22 17:15 Magnesium 2.0 mg/dL (1.7-2.3) 07/19/22 17:15 Total Bilirubin 0.7 mg/dL (0.15-1.2) 07/19/22 17:15 AST 25 U/L (0-32) 07/19/22 17:15 ALT 18 U/L (0-33) 07/19/22 17:15 Alkaline Phosphatase 91 U/L (35-105) 07/19/22 17:15 Troponin T Baseline 6 ng/L (0-10) 07/19/22 17:15 Troponin T 120 Minute 6.00 ng/L (0-10) 07/19/22 19:39 Delta Troponin T 0 ABS# (0-10) 07/19/22 19:39 Troponin T Hi Sens 6Hr 6.00 ng/L (0-10) 07/19/22 22:49 Troponin T Hi Sens 6Hr Delta 0 ng/L (0-12) 07/19/22 22:49 NT-Pro-B Natriuret Pep 67 pg/mL (0-125) 07/19/22 17:15 Total Protein 7.5 g/dL (6.6-8.7) 07/19/22 17:15 Albumin 4.4 g/dL (3.5-5.2) 07/19/22 17:15 Globulin 3.1 g/dL (1.3-4.6) 07/19/22 17:15 Triglycerides 240 mg/dL (0-150) H 07/19/22 17:15 Cholesterol 173 mg/dL (0-200) 07/19/22 17:15 LDL Cholesterol, Calc 78 mg/dL (50-129) 07/19/22 17:15 HDL Cholesterol 47 mg/dL (60-100) L 07/19/22 17:15 LDL/HDL Ratio 1.66 RATIO (0.00-3.22) 07/19/22 17:15 Cholesterol/HDL Ratio 3.68 mg/dL (0.0-4.40) 07/19/22 17:15 TSH 2.84 uIU/mL (0.27-4.20) 07/19/22 17:15 Urine Color Yellow (Yellow) 07/20/22 05:00 Urine Appearance Clear (CLEAR) 07/20/22 05:00 Urine pH 5 (5-7) 07/20/22 05:00 Ur Specific [place] 1.020 (1.005-1.030) 07/20/22 05:00 Urine Protein Neg (Negative) 07/20/22 05:00 Urine Glucose (UA) Norm (Normal) 07/20/22 05:00 Urine Ketones Negative (Negative) 07/20/22 05:00 Urine Blood Neg (Negative) 07/20/22 05:00 Urine Nitrate Negative (Negative) 07/20/22 05:00 Urine Bilirubin Neg (Negative) 07/20/22 05:00 Urine Urobilinogen Norm mg/dL (Negative) 07/20/22 05:00 Ur Leukocyte Esterase Negative (Negative) 07/20/22 05:00 Vitals Last Vital Signs Temp 97.8 F 07/21/22 08:00 Pulse 87 07/21/22 08:00 Resp 16 07/21/22 04:00 BP 105/55 07/21/22 08:00 Pulse Ox 100 07/21/22 08:00 O2 Del Method 07/21/22 04:00 O2 Flow Rate 6 07/20/22 14:33 Discharge Plan Discharge Patient Disposition: Home Health Service Condition: Stable Prescriptions: New oxycodone 5 mg tablet 5 mg PO Q6H PRN (Reason: pain) 7 Days Qty: 42 0RF enoxaparin [Lovenox] 40 mg/0.4 mL syringe 40 mg SUBCUT Q24H 14 Days Qty: 5.6 0RF Continued multivitamin Tablet 1 tab PO DAILY folic acid 1 mg tablet 1 mg PO DAILY clopidogrel [Plavix] 75 mg tablet 75 mg PO DAILY levetiracetam 500 mg tablet 500 mg PO BID cholecalciferol (vitamin D3) 25 mcg (1,000 unit) capsule 25 mcg PO DAILY nitroglycerin [Nitrostat] 0.4 mg tablet, sublingual 0.4 mg SUBLINGUAL Q5M PRN (Reason: chest pain) 30 Days Qty: 25 6RF Rx Instructions: do not exceed 3 doses per episode lorazepam 0.5 mg tablet 0.5 mg PO TID Qty: 90 5RF atorvastatin 20 mg tablet 20 mg PO DAILY Held spironolactone [Aldactone] 25 mg tablet 25 mg PO DAILY Hold Instructions: Resume on 07/28/22. Hold until you see your primary care due to low blood pressures metoprolol succinate [Toprol XL] 50 mg tablet extended release 24 hr 25 mg PO DAILY Hold Instructions: Resume on 07/28/22. Hold until you see your primary care due to low blood pressures Rx Instructions: May take up to 1 tab Discharge Orders: Discharge Order (Routine); Ordered 07/21/22 Ordered By: Josemanuel Riddle Other Ambulatory Orders: DME: Wheelchair (Order) Location: None Selected Ordered By: Gary Cottrell [place] [facility] [place]) [Outside] Gary Cottrell DO [Physician] - 2 weeks Efrain Mckeon DO [Primary Care Provider] - 1 week Discharge Diet: Cardiac Discharge Activity: Resume usual activity Patient Instructions: Oxycodone, Rapid Release (By mouth), Enoxaparin (By injection) (Lovenox), Opioid Safety Activity Restrictions/Additional Instructions: - Please use pain medication, oxycodone sparingly for pain, to help with physical therapy, do not drive or operate heavy machinery or drink while taking medication -We have discharged you on Lovenox for DVT prophylaxis, -This is a blood thinner if you develop bloody or black stools go to emergency room -Follow-up with primary care provider in 1 week -Follow-up Dr. Cottrell in 2 weeks -Nonweightbearing right ankle Discharge Attestations Time Spent in Discharge Care*: less than 30 min Quality Metrics Clinical Quality Measures [ No reported AMI, CVA or VTE this stay] Coding Level of Care Code Acute [facility] note Diagnoses Fracture of posterior malleolus of left tibia S82.392A Fracture of distal end of tibia with fibula S82.309A; S82.839A
--- NOTE | 2022-07-21 13:35 | PC.NURSE ---
Discussed discharge follow up appointments, new medications and discontinued medications. Verbalized underestanding
== END 2022-07-21 12:25 | disposition home health service (06) | DRG 493 ==
LOC: ER 17:45 → MEDSURG 18:08
PROVIDERS: Student in an Organized Health Care Education/Training Program; Admitting Provider Family Medicine; Emergency Provider Family Medicine; PCP Family Medicine; Visit Provider Family Medicine
PROC: 0QSH06Z Reposition Left Tibia with Intramedullary Internal Fixation Device, Open Approach (ICD-10-PCS; principal; 2022-07-20 14:55)
PROC: 0QSK04Z Reposition Left Fibula with Internal Fixation Device, Open Approach (ICD-10-PCS; CPT 27828; 2022-07-20 14:55)
DX: S82.52XA Displaced fracture of medial malleolus of left tibia, initial encounter for closed fracture (principal); I51.81 Takotsubo syndrome; S82.442A Displaced spiral fracture of shaft of left fibula, initial encounter for closed fracture; W00.0XXA Fall on same level due to ice and snow, initial encounter; Z86.73 Personal history of transient ischemic attack (TIA), and cerebral infarction without residual deficits; E78.5 Hyperlipidemia, unspecified; I34.0 Nonrheumatic mitral (valve) insufficiency; Z86.16 Personal history of COVID-19; Z79.02 Long term (current) use of antithrombotics/antiplatelets; I25.2 Old myocardial infarction; Z85.828 Personal history of other malignant neoplasm of skin
CPT/HCPCS: 36415; 51702; 71045; 73560; 73590; 73600; 73700; 76000; 80053; 80061; 81003; 83036; 83735; 83880; 84100; 84443; 84484; 85025; 85610; 93005; 94664; 96372; 96374; 96375; 97116; 97161; 97165; 97530; 99285; C1713; C9113; J0690; J1100; J1170; J1650; J2270; J2405; J2704; J3010; J7030

== ENCOUNTER → 2022-08-03 10:00 | Outpatient (BNVA) | payer MEDICARE, OTHER, SELFPAY | PROVIDERS: PCP Family Medicine; Visit Provider Nurse Practitioner Family | DX: Z98.890 Other specified postprocedural states (principal); S82.302A Unspecified fracture of lower end of left tibia, initial encounter for closed fracture; S82.832A Other fracture of upper and lower end of left fibula, initial encounter for closed fracture; L89.621 Pressure ulcer of left heel, stage 1; X58.XXXA Exposure to other specified factors, initial encounter; S82.392A Other fracture of lower end of left tibia, initial encounter for closed fracture | CPT/HCPCS: 73590; 99213 ==

== ENCOUNTER 2022-08-03 15:32 | Outpatient (CLI) | payer MEDICARE, OTHER, SELFPAY | END 2022-08-03 15:33 | disposition home or self-care (01) | LOC: SPT 15:46 | PROVIDERS: PCP Family Medicine; Visit Provider Nurse Practitioner Family | DX: Z46.89 Encounter for fitting and adjustment of other specified devices (principal); S82.302D Unspecified fracture of lower end of left tibia, subsequent encounter for closed fracture with routine healing; S82.832D Other fracture of upper and lower end of left fibula, subsequent encounter for closed fracture with routine healing; X58.XXXD Exposure to other specified factors, subsequent encounter | CPT/HCPCS: 97760; L4361 ==

== ENCOUNTER 2022-08-11 23:10 | Emergency (ER) | payer MEDICARE, OTHER, SELFPAY ==
[2022-08-11 23:23] VITALS: BP 106/71; PULSE 119; RESP 18; TEMP 37.3; O2SAT 95; BMI 22.1
--- NOTE | 2022-08-11 23:28 | W.ED.EXTPRO ---
HPI - Extremity Problem General: Chief complaint: Extremity Injury, Lower Stated complaint: redness, fever, post leg surgery Time Seen by Provider: 08/11/22 23:28 History of Present Illness: 71-year-old female comes in today for concerns of redness and swelling to the left lower extremity along surgical repair. Patient has had a history of DVT in the past. Patient is concerned that she may be developing a blood clot and came in to be evaluated for this. Patient appears nontoxic. Patient reports pain in the left lower extremity. Surgical repair was done for a tib-fib distal fracture. Fracture repair was done on 20 July. Patient's other history relates to coronary artery disease, mitral valve regurgitation, renal stones, and CVA. Associated symptoms: Deny chest pain Review of Systems Const: Reports: chills Card: Denies: chest pain Resp: Denies: dyspnea Musc: Reports: extremity pain and extremity swelling Skin/Breast: Reports: erythema PFSH ED PFSH: Medical History (Updated 08/12/22 @ 02:36 by JUAN Lucas) Fracture of distal end of tibia with fibula Fracture of posterior malleolus of left tibia History of CVA (cerebrovascular accident) History of IN (myocardial infarction) History of nonmelanoma skin cancer Mitral valve regurgitation Palpitations Renal stones Stress-induced cardiomyopathy Surgical History (Updated 08/03/22 @ 10:35 by JUAN Ramirez) H/O section S/P cholecystectomy S/P hysterectomy Status post laser lithotripsy of ureteral calculus Family History Father , 86 leukemia CHF (congestive heart failure) Cancer Mother Blood clot in vein Social History Smoking and tobacco status: never smoked Physical Exam Const: COMMON NORMALS: alert HENMT: COMMON NORMALS: normocephalic and Normal external nose present HEAD & SCALP: normocephalic NOSE: Normal external nose present MOUTH: Normal oral and palatal mucosa present Neck/C-Spine: COMMON NORMALS: full ROM Resp: COMMON NORMALS: normal respiratory effort Cardio: COMMON NORMALS: regular rhythm RATE: tachycardic RHYTHM: regular rhythm GI: COMMON NORMALS: Soft to palpation and non-tender PALPATION: Yes Soft to palpation Extremity: LEFT LOWER EXTREMITY: Yes ankle joint (Mild swelling and redness, well approximated sutures) Neuro: SENSORIUM/ORIENTATION: Yes alert Skin: COMMON NORMALS: turgor normal GENERAL SKIN EXAM: turgor normal WOUNDS: Yes wounds noted (Healing wound to the left lower extremity) with surrounding erythema Course ED course: 105, patient was positive for a DVT to the left lower extremity. Was reviewing examination with patient when she made statements that she had also been having problems with shortness of breath and rapid heart rate at times. Recommended that we go ahead and do a CTA of the chest for pulmonary embolism rule out. Patient agreed with plan. Vital Signs: Vital signs: Vital Signs Temperature 99.2 F 08/11/22 23:23 Pulse Rate 94 08/12/22 01:30 Respiratory Rate 16 08/12/22 01:30 Blood Pressure 106/64 08/12/22 01:30 Pulse Oximetry 97 08/12/22 01:30 Oxygen Delivery Me thod 08/11/22 23:23 MDM - Extremity (Nontraumatic) Medical Decision Making 71-year-old female [facility] with concerns of increasing pain and swelling to the left lower extremity. Patient had surgery for a tib-fib ORIF on 20 July. Patient had been on Lovenox up until last Tuesday. Patient had stopped the medication and then on Tuesday started having some tenderness and discomfort to the left lower extremity that was different than her postsurgical pain. On exam patient had some redness to the distal part of the left lower extremity, pulses were intact. Differential diagnosis includes but not limited to DVT, cellulitis, surgical infection. CBC and CMP were unremarkable. X-ray of the ankle noted per surgical changes. Venous duplex noted extensive left lower extremity DVT from the distal common femoral vein to the calf vein. CTA for PE protocol was placed due to patient's concern for increased shortness of breath and some tachycardia with ambulation. CTA noted no pulmonary embolism. Reviewed exam with patient recommended treatment with Eliquis 10 mg twice a day for next 10 days followed by the 5 mg twice a day for up to 3 months. Patient should follow-up with primary care in 3 to 5 days for recheck. Return to ED for worsening symptoms. Patient reported understanding and agreed to plan. Lab Data 08/11/22 23:46 08/11/22 23:46 Radiology Impressions Venous Duplex 08/11/22 23:29 IMPRESSION: Extensive left lower extremity deep venous thrombus from the distal common femoral vein to the calf veins. ADDENDUM: 08/12/22 0056 THIS REPORT CONTAINS FINDINGS THAT MAY BE CRITICAL TO PATIENT CARE. The findings were verbally communicated via telephone conference with Dr. You at 12:55 AM TUB PULLER on 08/12/2022. The findings were acknowledged and understood. Ankle X-Ray 08/11/22 23:39 IMPRESSION: Left ankle ORIF changes with anatomic alignment and findings of partial healing since comparison CT. No acute osseous injury. Chest CTA 08/12/22 01:06 IMPRESSION: No pulmonary embolism. Laboratory Results WBC 10.0 10^3/uL (4.0-10.0) 08/11/22 23:46 RBC 3.74 10^6/uL (4.1-5.3) L 08/11/22 23:46 Hgb 12.0 g/dL (11.5-15.3) 08/11/22 23:46 Hct 36.4 % (37.0-47.0) L 08/11/22 23:46 MCV 97.3 fl (81-99) 08/11/22 23:46 MCH 32.1 pg (28.0-34.0) 08/11/22 23:46 MCHC 33.0 g/dL (30.0-36.0) 08/11/22 23:46 RDW 13.0 % (12.1-15.1) 08/11/22 23:46 Plt Count 244 10^3/cmm (130-400) 08/11/22 23:46 MPV 9.6 fL (7.4-10.4) 08/11/22 23:46 Neut % (Auto) 70.7 % 08/11/22 23:46 Lymph % (Auto) 17.6 % 08/11/22 23:46 [place] % (Auto) 9.5 % 08/11/22 23:46 Eos % (Auto) 1.4 % 08/11/22 23:46 Baso % (Auto) 0.5 % 08/11/22 23:46 Neut # (Auto) 7.08 10^3/uL (1.8-7.7) 08/11/22 23:46 Lymph # (Auto) 1.8 10^3/uL (0.8-4.8) 08/11/22 23:46 [place] # (Auto) 1.0 10^3/uL (0.2-0.9) H 08/11/22 23:46 Eos # (Auto) 0.1 10^3/uL (0.0-0.8) 08/11/22 23:46 Baso # (Auto) 0.1 10^3/uL (0.0-0.1) 08/11/22 23:46 Nucleated RBC % (auto) 0 % 08/11/22 23:46 Nucleated RBCs # 0.0 /100WBC 08/11/22 23:46 Sodium 136 mmol/L (136-145) 08/11/22 23:46 Potassium 4.2 mmol/L (3.5-5.1) 08/11/22 23:46 Chloride 100 mmol/L (98-107) 08/11/22 23:46 Carbon Dioxide 22 mmol/L (22-29) 08/11/22 23:46 Anion Gap 18.2 (5-19) 08/11/22 23:46 BUN 13 mg/dL (8-23) 08/11/22 23:46 Creatinine 0.9 mg/dL (0.5-0.9) 08/11/22 23:46 GFR Calculation Not Reportable 08/11/22 23:46 Glucose 106 mg/dL (65-115) 08/11/22 23:46 Calculated Osmolality 283 mOsm/kg (285-295) L 08/11/22 23:46 Lactic Acid 0.9 mmol/L (0.5-2.2) 08/11/22 23:46 Calcium 9.7 mg/dL (8.5-10.5) 08/11/22 23:46 Total Bilirubin 0.5 mg/dL (0.15-1.2) 08/11/22 23:46 AST 20 U/L (0-32) 08/11/22 23:46 ALT 18 U/L (0-33) 08/11/22 23:46 Alkaline Phosphatase 126 U/L (35-105) H 08/11/22 23:46 Total Protein 6.8 g/dL (6.6-8.7) 08/11/22 23:46 Albumin 3.8 g/dL (3.5-5.2) 08/11/22 23:46 Globulin 3.0 g/dL (1.3-4.6) 08/11/22 23:46 Discharge Plan Discharge Patient Disposition: Home Clinical Impression: DVT (deep venous thrombosis) Qualifiers: DVT location: lower extremity Affected thrombotic vein of extremity: femoral Chronicity: acute Laterality: left Qualified Code(s): I82.412 - Acute embolism and thrombosis of left femoral vein Condition: Stable Prescriptions: New Niko DVT-PE Treat 30D Start 5 mg (74 tabs) tablets,dose pack See Rx Instructions .ROUTE .COMPLEX Qty: 74 0RF Rx Instructions: orally per package directions No Action spironolactone [Aldactone] 25 mg tablet 25 mg PO DAILY Hold Instructions: Resume on 07/28/22. Hold until you see your primary care due to low blood pressures multivitamin Tablet 1 tab PO DAILY metoprolol succinate [Toprol XL] 50 mg tablet extended release 24 hr 25 mg PO DAILY Hold Instructions: Resume on 07/28/22. Hold until you see your primary care due to low blood pressures Rx Instructions: May take up to 1 tab folic acid 1 mg tablet 1 mg PO DAILY clopidogrel [Plavix] 75 mg tablet 75 mg PO DAILY levetiracetam 500 mg tablet 500 mg PO BID cholecalciferol (vitamin D3) 25 mcg (1,000 unit) capsule 25 mcg PO DAILY (DME) cam walking boot See Rx Instructions .ROUTE .MEDSUPPLY Qty: 1 0RF Rx Instructions: As directed cephalexin 500 mg capsule 500 mg PO TID 10 Days Qty: 30 0RF Rx Instructions: Take one tablet three times daily. nitroglycerin [Nitrostat] 0.4 mg tablet, sublingual 0.4 mg SUBLINGUAL Q5M PRN (Reason: chest pain) 30 Days Qty: 25 6RF Rx Instructions: do not exceed 3 doses per episode lorazepam 0.5 mg tablet 0.5 mg PO TID Qty: 90 5RF methocarbamol 500 mg tablet 500 mg PO Q8H 7 Days Qty: 21 0RF tramadol 50 mg tablet 50 mg PO Q6H PRN (Reason: pain) Qty: 30 0RF atorvastatin 20 mg tablet 20 mg PO DAILY Discharge Orders: Discharge ED (Routine); Ordered 08/12/22 Ordered By: Eduardo Tanner Referrals: Efrain Mckeon DO [Primary Care Provider] - Discharge Diet: Usual diet Discharge Activity: Increase activity as tolerated Patient Instructions: Apixaban (By mouth) (Eliquis), Deep Vein Thrombosis (DC) Activity Restrictions/Additional Instructions: Continue with routine medications and care as directed. Take Eliquis 10 mg 2 times daily as directed by package insert. Follow-up with primary care in 3 to 5 days for recheck. Return to emergency department for worsening symptoms such as severe chest pain, severe shortness of breath, high fever greater than 100.4, or new concerns. Coding Level of Care Code ED Chief Human Resources Officer for Chiara Acuña
--- NOTE | 2022-08-11 23:29 | USR_ITS ---
PROCEDURE INFORMATION: Exam: US Duplex Left Lower Extremity Veins, Limited Exam date and time: 08/11/2022 11:48 PM Age: 71 years old Clinical indication: Leg, upper and leg, lower; Prior surgery; Surgery date: <1 month; Surgery type: Left tib/fib orif 07/22/22; Patient HX: Pain and swelling lle S/P lt orif 07/22/22; Additional info: R/O dvt TECHNIQUE: Imaging protocol: Real-time duplex ultrasound of the left extremity with 2-D strong scale, color Doppler flow and spectral waveform analysis including responses to compression and other maneuvers (when performed) with image documentation. Limited exam focused on the left lower extremity veins. COMPARISON: CT ankle LT wo con* [id number] 07/19/2022 3:34 PM FINDINGS: Left deep veins: Patent left common femoral vein proximally. Distally there is thrombus seen extending into the femoral vein popliteal vein and calf veins. Thrombus is also seen in the profunda femoral vein. Left superficial veins: Unremarkable. Saphenofemoral junction is patent without thrombus. Soft tissues: Unremarkable. US/[place] [id number] IMPRESSION: Extensive left lower extremity deep venous thrombus from the distal common femoral vein to the calf veins.
--- NOTE | 2022-08-11 23:39 | XRR_ITS ---
PROCEDURE INFORMATION: Exam: XR Left Ankle Exam date and time: 08/12/2022 12:06 AM Age: 71 years old Clinical indication: Pain; Ankle; Left; Prior surgery; Surgery date: <1 month; Additional info: Pain, redness swelling, postsurgical repair TECHNIQUE: Imaging protocol: Radiologic exam of the left ankle. Views: 3 or more views. COMPARISON: 1. CT ankle LT wo con* [id number] 07/19/2022 3:34 PM 2. CR XR tibia fibula LT 2V [id number] 08/03/2022 10:05 AM FINDINGS: Bones/joints: Status post ORIF of the distal tibial fracture with intramedullary eulogio and transverse syndesmotic screw. There is also ORIF of the distal fibula fracture with plate and screw fixation. The alignment is near anatomic. The fracture lines are less distinct consistent with healing since comparison CT similar to recent xray. . Small ankle joint effusion. Mild tibiotalar joint arthritis. No acute osseous injury. Soft tissues: Normal. XR/XR ankle LT min 3V* [id number] IMPRESSION: Left ankle ORIF changes with anatomic alignment and findings of partial healing since comparison CT. No acute osseous injury.
[2022-08-11 23:50] LABS: Basophils # 0.1 10^3/uL (0.0-0.1); Basophils % 0.5 %; Eosinophils # 0.1 10^3/uL (0.0-0.8); Eosinophils % 1.4 %; Hematocrit 36.4 % (37.0-47.0); Lymphocytes # 1.8 10^3/uL (0.8-4.8); Lymphocytes % 17.6 %; Mean Corpuscular Hemoglobin 32.1 pg (28.0-34.0); Mean Corpuscular Volume 97.3 fl (81-99); Mean Platelet Volume 9.6 fL (7.4-10.4); Monocytes % 9.5 %; Neutrophils # 7.08 10^3/uL (1.8-7.7); Neutrophils % 70.7 %; Nucleated Red Blood Cells % 0 %; Platelet Count 244 10^3/cmm (130-400); Red Blood Count 3.74 10^6/uL (4.1-5.3)
[2022-08-11 23:56] VITALS: BP 103/63; PULSE 113; RESP 16; O2SAT 97
[2022-08-12] VITALS: BP 120/60; PULSE 105; RESP 16; O2SAT 96
[2022-08-12 00:05] LABS: Lactic Sepsis W/Reflex 0.9 mmol/L (0.5-2.2)
[2022-08-12 00:06] LABS: Alanine Aminotransferase 18 U/L (0-33); Albumin Level 3.8 g/dL (3.5-5.2); Alkaline Phosphatase 126 U/L (35-105); Anion Gap 18.2 (5-19); Aspartate Amino Transferase 20 U/L (0-32); Blood Urea Nitrogen 13 mg/dL (8-23); Calcium 9.7 mg/dL (8.5-10.5); Carbon Dioxide 22 mmol/L (22-29); Chloride 100 mmol/L (98-107); Glucose 106 mg/dL (65-115); Osmolality Calculated 283 mOsm/kg (285-295); Potassium 4.2 mmol/L (3.5-5.1); Sodium 136 mmol/L (136-145); Total Bilirubin 0.5 mg/dL (0.15-1.2); Total Protein 6.8 g/dL (6.6-8.7)
[2022-08-12 00:30] VITALS: BP 113/68; PULSE 95; RESP 14; O2SAT 95
[2022-08-12 01:00] VITALS: BP 114/69; PULSE 95; RESP 14; O2SAT 96
--- NOTE | 2022-08-12 01:06 | CTR_ITS ---
PROCEDURE INFORMATION: Exam: CTA Chest With Contrast Exam date and time: 08/12/2022 1:57 AM Age: 71 years old Clinical indication: Cough and shortness of breath and other: Dvt; Prior surgery; Surgery type: Gb; Patient HX: Cough with SOB. Positive for left lower leg dvt. Tibial surgery two weeks ago. ; Additional info: Dvt+, reports episodes of tachycardia and short of breath TECHNIQUE: Imaging protocol: Computed tomographic angiography of the chest with contrast. 3D rendering (Not supervised by radiologist): MIP and/or 3D reconstructed images were created by the technologist. Radiation optimization: All CT scans at this facility use at least one of these dose optimization techniques: automated exposure control; mA and/or kV adjustment per patient size (includes targeted exams where dose is matched to clinical indication); or iterative reconstruction. Contrast material: OMNI 350; Contrast volume: 56 ml; Contrast route: INTRAVENOUS (IV); REPORTING DATA: Count of CT and Cardiac NM exams in prior 12 months: This patient has received 2 known CTs and 0 known cardiac nuclear medicine studies in the 12 months prior to the current study. COMPARISON: CT angio chest PE protcl [id number] 12/08/2018 10:12 PM RADIATION DOSE METRICS: Total DLP (mGy-cm): 175.16 FINDINGS: Pulmonary arteries: No pulmonary embolism. Aorta: Unremarkable. No aortic aneurysm. No aortic dissection. Lungs: Calcified pulmonary nodule/nodules, consistent with prior granulomatous disease. Left basilar atelectasis. Pleural spaces: Unremarkable. No pneumothorax. No pleural effusion. Heart: Unremarkable. No cardiomegaly. No pericardial effusion. Lymph nodes: Calcified lymph nodes are present, secondary to prior granulomatous disease. Gallbladder and bile ducts: There has been a cholecystectomy. Bones/joints: Unremarkable. No acute fracture. Soft tissues: Unremarkable. CT/CT angio chest PE protcl [id number] IMPRESSION: No pulmonary embolism.
[2022-08-12 01:30] VITALS: BP 106/64; PULSE 94; RESP 16; O2SAT 97
[2022-08-12] MEDS: iohexol 350 mg/mL 500 mL Btl (per mL) IV (02:08)
[2022-08-12] MEDS: apixaban 5 mg Tablet 10 MG PO (02:45)
== END 2022-08-12 02:46 | disposition home or self-care (01) ==
PROVIDERS: Emergency Medicine; Emergency Provider Nurse Practitioner Family; PCP Family Medicine
DX: I82.412 Acute embolism and thrombosis of left femoral vein (principal); Z79.02 Long term (current) use of antithrombotics/antiplatelets; Z86.73 Personal history of transient ischemic attack (TIA), and cerebral infarction without residual deficits; I25.2 Old myocardial infarction
CPT/HCPCS: 71275; 73610; 80053; 83605; 85025; 93971; 99285; Q9967

== ENCOUNTER → 2022-08-16 11:07 | Outpatient (BNVA) | payer MEDICARE, OTHER, SELFPAY | PROVIDERS: PCP Family Medicine; Visit Provider Student in an Organized Health Care Education/Training Program | DX: Z98.890 Other specified postprocedural states (principal); S82.832A Other fracture of upper and lower end of left fibula, initial encounter for closed fracture; L89.229 Pressure ulcer of left hip, unspecified stage; S82.392A Other fracture of lower end of left tibia, initial encounter for closed fracture; X58.XXXA Exposure to other specified factors, initial encounter; R23.8 Other skin changes; I82.402 Acute embolism and thrombosis of unspecified deep veins of left lower extremity | CPT/HCPCS: 73590; 99024; 99213; A6210 ==

== ENCOUNTER 2022-08-18 06:00 | Outpatient (RCR) | payer MEDICARE, OTHER, SELFPAY | END 2022-09-17 23:59 | disposition home or self-care (01) | LOC: APT 06:00 | PROVIDERS: PCP Family Medicine; Visit Provider Student in an Organized Health Care Education/Training Program | DX: Z47.89 Encounter for other orthopedic aftercare (principal) | CPT/HCPCS: 97110; 97112; 97140; 97163; 97530 ==

== ENCOUNTER → 2022-08-30 10:51 | Outpatient (BNVA) | payer MEDICARE, OTHER, SELFPAY | PROVIDERS: PCP Family Medicine; Visit Provider Student in an Organized Health Care Education/Training Program | DX: S82.832A Other fracture of upper and lower end of left fibula, initial encounter for closed fracture (principal); L89.629 Pressure ulcer of left heel, unspecified stage; S82.392A Other fracture of lower end of left tibia, initial encounter for closed fracture; Z98.890 Other specified postprocedural states; X58.XXXA Exposure to other specified factors, initial encounter | CPT/HCPCS: 73590; 99024 ==

== ENCOUNTER → 2022-09-13 10:58 | Outpatient (BNVA) | payer MEDICARE, OTHER, SELFPAY | PROVIDERS: PCP Family Medicine; Visit Provider Student in an Organized Health Care Education/Training Program | DX: Z98.890 Other specified postprocedural states (principal); S82.392D Other fracture of lower end of left tibia, subsequent encounter for closed fracture with routine healing; S82.832D Other fracture of upper and lower end of left fibula, subsequent encounter for closed fracture with routine healing; X58.XXXD Exposure to other specified factors, subsequent encounter | CPT/HCPCS: 73590 ==

== ENCOUNTER 2022-09-13 15:05 | Outpatient (CLI) | payer MEDICARE, OTHER, SELFPAY | END 2022-09-13 15:06 | disposition home or self-care (01) | LOC: SPT 15:06 | PROVIDERS: PCP Family Medicine; Visit Provider Student in an Organized Health Care Education/Training Program | DX: Z46.89 Encounter for fitting and adjustment of other specified devices (principal); S82.302D Unspecified fracture of lower end of left tibia, subsequent encounter for closed fracture with routine healing; X58.XXXD Exposure to other specified factors, subsequent encounter; S82.832D Other fracture of upper and lower end of left fibula, subsequent encounter for closed fracture with routine healing; Z98.890 Other specified postprocedural states | CPT/HCPCS: 97760; 99024; L1902 ==

== ENCOUNTER 2022-09-18 06:00 | Outpatient (RCR) | payer MEDICARE, OTHER, SELFPAY | END 2022-10-17 23:59 | disposition home or self-care (01) | LOC: APT 06:00 | PROVIDERS: PCP Family Medicine; Visit Provider Student in an Organized Health Care Education/Training Program | DX: S82.302D Unspecified fracture of lower end of left tibia, subsequent encounter for closed fracture with routine healing (principal); S82.832D Other fracture of upper and lower end of left fibula, subsequent encounter for closed fracture with routine healing; X58.XXXD Exposure to other specified factors, subsequent encounter | CPT/HCPCS: 97110; 97112; 97116; 97140; 97530 ==

== ENCOUNTER → 2022-10-11 10:28 | Outpatient (BNVA) | payer MEDICARE, OTHER, SELFPAY | PROVIDERS: PCP Family Medicine; Visit Provider Student in an Organized Health Care Education/Training Program | DX: S82.52XD Displaced fracture of medial malleolus of left tibia, subsequent encounter for closed fracture with routine healing (principal); S82.832D Other fracture of upper and lower end of left fibula, subsequent encounter for closed fracture with routine healing; X58.XXXD Exposure to other specified factors, subsequent encounter | CPT/HCPCS: 73590; 99024; 99213 ==

== ENCOUNTER 2022-10-18 06:00 | Outpatient (RCR) | payer MEDICARE, OTHER, SELFPAY | END 2022-11-17 23:59 | disposition home or self-care (01) | LOC: APT 06:00 | PROVIDERS: PCP Family Medicine; Visit Provider Student in an Organized Health Care Education/Training Program | DX: Z47.89 Encounter for other orthopedic aftercare (principal) | CPT/HCPCS: 97110; 97112; 97530 ==

== ENCOUNTER → 2022-10-25 13:10 | Outpatient (BNVA) | payer MEDICARE, OTHER, SELFPAY | PROVIDERS: PCP Family Medicine; Visit Provider Family Medicine | DX: N39.0 Urinary tract infection, site not specified (principal) | CPT/HCPCS: 81000; 87086 ==

== ENCOUNTER 2022-11-18 06:00 | Outpatient (RCR) | payer MEDICARE, OTHER, SELFPAY | END 2022-12-17 23:59 | disposition home or self-care (01) | LOC: APT 06:00 | PROVIDERS: PCP Family Medicine; Visit Provider Student in an Organized Health Care Education/Training Program | DX: Z47.89 Encounter for other orthopedic aftercare (principal) | CPT/HCPCS: 97110; 97530 ==

== ENCOUNTER → 2023-01-24 09:35 | Outpatient (BNVA) | payer MEDICARE, OTHER, SELFPAY | PROVIDERS: PCP Family Medicine; Visit Provider Family Medicine | DX: Z13.6 Encounter for screening for cardiovascular disorders (principal); Z86.73 Personal history of transient ischemic attack (TIA), and cerebral infarction without residual deficits; I34.0 Nonrheumatic mitral (valve) insufficiency; I25.2 Old myocardial infarction; I51.81 Takotsubo syndrome | CPT/HCPCS: 80053; 80061; 85025 ==

== ENCOUNTER → 2023-01-25 11:48 | Outpatient (BNVA) | payer MEDICARE, OTHER, SELFPAY | PROVIDERS: PCP Family Medicine; Visit Provider Student in an Organized Health Care Education/Training Program | DX: S82.392A Other fracture of lower end of left tibia, initial encounter for closed fracture; X58.XXXA Exposure to other specified factors, initial encounter | CPT/HCPCS: 73590; 99213 ==

== ENCOUNTER → 2023-02-24 10:35 | Outpatient (BNVA) | payer MEDICARE, OTHER, SELFPAY | PROVIDERS: PCP Family Medicine; Visit Provider Nurse Practitioner Family | DX: L57.0 Actinic keratosis (principal); L82.0 Inflamed seborrheic keratosis; L81.4 Other melanin hyperpigmentation; Z85.828 Personal history of other malignant neoplasm of skin; L57.8 Other skin changes due to chronic exposure to nonionizing radiation | CPT/HCPCS: 17000; 17003; 17110; 99213 ==

== ENCOUNTER → 2023-03-23 11:39 | Outpatient (BNVA) | payer MEDICARE, OTHER, SELFPAY | PROVIDERS: PCP Family Medicine; Visit Provider Internal Medicine Cardiovascular Disease | DX: I34.0 Nonrheumatic mitral (valve) insufficiency (principal); I51.81 Takotsubo syndrome; R00.2 Palpitations; Z86.73 Personal history of transient ischemic attack (TIA), and cerebral infarction without residual deficits | CPT/HCPCS: 99214 ==

== ENCOUNTER 2023-04-20 08:56 | Outpatient (CLI) | payer MEDICARE, OTHER, SELFPAY ==
--- NOTE | 2023-04-20 09:02 | MM_ITS ---
WS: [id number] BILATERAL SCREENING DIGITAL TOMOSYNTHESIS MAMMOGRAM WITH CAD HISTORY: SCREENING COMPARISON: 09/24/2020 and 08/22/2019 Bilateral CC and MLO views with tomosynthesis and synthetic mammography submitted. Computer aided det ection analyzed. Breast composition: There are scattered areas of fibroglandular density. No suspicious masses, microc alcifications or architectural distortion. Benign coarse calcifications in each breast. IMPRESSION: MM/[place] [id number] BI-RADS: 2-Benign FOLLOW UP: 1 Year Follow-up
== END 2023-04-20 08:57 | disposition home or self-care (01) ==
LOC: RAD 08:56
PROVIDERS: PCP Family Medicine; Visit Provider Family Medicine
DX: Z12.31 Encounter for screening mammogram for malignant neoplasm of breast (principal)
CPT/HCPCS: 77063; 77067

== ENCOUNTER → 2023-07-07 09:13 | Outpatient (BNVA) | payer MEDICARE, OTHER, SELFPAY | PROVIDERS: PCP Family Medicine; Visit Provider Student in an Organized Health Care Education/Training Program | DX: S82.392D Other fracture of lower end of left tibia, subsequent encounter for closed fracture with routine healing (principal); S82.832D Other fracture of upper and lower end of left fibula, subsequent encounter for closed fracture with routine healing; X58.XXXD Exposure to other specified factors, subsequent encounter | CPT/HCPCS: 73590; 99213 ==

== ENCOUNTER → 2024-02-27 10:34 | Outpatient (BNVA) | payer MEDICARE, OTHER, SELFPAY | PROVIDERS: PCP Family Medicine; Visit Provider Nurse Practitioner Family | DX: L57.0 Actinic keratosis (principal); L82.0 Inflamed seborrheic keratosis; D18.01 Hemangioma of skin and subcutaneous tissue; L57.8 Other skin changes due to chronic exposure to nonionizing radiation; L81.4 Other melanin hyperpigmentation | CPT/HCPCS: 17000; 17110; 99213 ==

== ENCOUNTER → 2024-03-23 10:53 | Outpatient (BNVA) | payer MEDICARE, OTHER, SELFPAY | PROVIDERS: PCP Family Medicine; Visit Provider Internal Medicine Cardiovascular Disease | DX: I51.81 Takotsubo syndrome (principal); I34.0 Nonrheumatic mitral (valve) insufficiency | CPT/HCPCS: 99213 ==

== ENCOUNTER → 2024-04-05 12:34 | Outpatient (BNVA) | payer MEDICARE, OTHER, SELFPAY | PROVIDERS: PCP Family Medicine; Visit Provider Family Medicine | DX: Z86.73 Personal history of transient ischemic attack (TIA), and cerebral infarction without residual deficits (principal); I25.2 Old myocardial infarction | CPT/HCPCS: 80053; 80061; 83721 ==

== ENCOUNTER → 2024-07-25 07:58 | Outpatient (BNVA) | payer MEDICARE, OTHER, SELFPAY | PROVIDERS: PCP Family Medicine; Visit Provider Family Medicine | DX: I25.2 Old myocardial infarction (principal) | CPT/HCPCS: 80061 ==

== ENCOUNTER 2024-09-21 09:33 | Outpatient (CLI) | payer MEDICARE, OTHER, SELFPAY ==
--- NOTE | 2024-09-21 09:36 | MM_ITS ---
WS: [id number] BILATERAL SCREENING DIGITAL TOMOSYNTHESIS MAMMOGRAM WITH CAD HISTORY: SCREENING COMPARISON: 04/20/2023, 09/24/2020 Bilateral CC and MLO views with tomosynthesis and synthetic mammography submitted. Computer aided detection analyzed. Breast composition: There are scattered areas of fibroglandular density. No suspicious masses, microcalcifications or architectural distortion. Benign coarse calcifications in each breast. MM/MM scr BI tomosynthesis [id number] IMPRESSION: BI-RADS: 2 - Benign. FOLLOW UP: 1 Year Follow-up
== END 2024-09-21 09:34 | disposition home or self-care (01) ==
LOC: RAD 09:35
PROVIDERS: PCP Family Medicine; Visit Provider Family Medicine
DX: Z12.31 Encounter for screening mammogram for malignant neoplasm of breast (principal); R92.323 Mammographic fibroglandular density, bilateral breasts; R92.1 Mammographic calcification found on diagnostic imaging of breast
CPT/HCPCS: 77063; 77067

== ENCOUNTER 2024-11-15 08:14 | Emergency (ER) | payer MEDICARE, OTHER, SELFPAY ==
[2024-11-15 08:23] VITALS: BP 115/59; PULSE 88; RESP 16; TEMP 36.7; O2SAT 97; BMI 22.1
--- NOTE | 2024-11-15 08:41 | USCV_ITS ---
Gabi Orozco Age: 73 Gender: F : 1950 Exam Date: 11/15/2024 09:23 Ordering Phys: Paul Peterson DO Technologist: R [place] [facility] [place]: hx of DVT, pain HISTORY: Patient has history of. DVT. PROCEDURES: Venous duplex imaging was performed in only the left lower extremity. The following venous structures were evaluated: common femoral vein, profunda vein, proximal portion of the greater saphenous vein, superficial femoral vein, and the popliteal vein. In addition, the posterior tibial and peroneal trunk were evaluated. FINDINGS: Left lower extremity: there is occlusive DVT of popliteal vein to the CFV-GSV junction, there does not appear to be any signs of SVT Notified Dr. Peterson in the ER CONCLUSIONS Occlusive DVT popliteal vein extending to CFV-GSV junction. Dr Peterson notified by attorney general at time of exam Enrique Johnson MD (Electronically Signed) Final Date: 15 Nov 2024 09:56 S
--- NOTE | 2024-11-15 08:49 | W.ED.EXTPRO ---
HPI - Extremity Problem General: Chief complaint: Extremity Problem,Nontraumatic Stated complaint: L leg pain Time Seen by Provider: 11/15/24 08:19 History of Present Illness: 73-year-old female presents emergency room with complaint of left leg pain. She has a history of previous DVT she is not currently on any anticoagulants. DVTs occurred after she had previously had a tibia fracture requiring open reduction internal fixation with eulogio placement. She currently is off any anticoagulation she is on Plavix. Over the last several days she has noticed some increased discomfort in the leg extending all the way up to her groin region. No recent trauma falls or injury no fever sweats or chills. The swelling seems to go down when she lays down at night. No chest pain no shortness of breath pain. No back pain no history of any lumbar nerve impingement or radicular symptoms. Associated symptoms: Deny chest pain, fever(s) or rash Related Data Home Medications ?Medication ?Instructions ?Recorded ?Confirmed cholecalciferol (vitamin D3) 25 25 mcg PO DAILY 07/24/19 03/23/24 mcg (1,000 unit) capsule clopidogrel 75 mg tablet (Plavix) 75 mg PO DAILY 07/24/19 03/23/24 levetiracetam 500 mg tablet 500 mg PO BID 07/24/19 03/23/24 multivitamin 1 tab PO DAILY 07/24/19 03/23/24 folic acid 1 mg tablet 1 mg PO DAILY 04/29/21 03/23/24 Previous Rx's ?Medication ?Instructions ?Recorded cam walking boot #1 ea 08/03/22 Lace Up Ankle Brace #1 ea 09/13/22 cephalexin 500 mg capsule 500 mg PO TID #15 caps 08/10/23 prednisone 20 mg tablet 20 mg PO BID #10 tabs 08/10/23 nitroglycerin 0.4 mg sublingual 0.4 mg sublingual Q5M PRN chest 08/24/23 tablet (Nitrostat) pain 30 days #25 tabs azithromycin 250 mg tablet See Rx Instructions PO .COMPLEX #6 02/24/24 tabs qbzlwjss-pldlczabc-rhscpnax 3.5 2 drp ophthalmic (eye) Q2H #5 mL 02/24/24 mg/mL-10,000 unit/mL-0.1% eye drops (Maxitrol) lorazepam 0.5 mg tablet 0.5 mg PO TID PRN stress/muscle 03/19/24 spasm #90 tabs atorvastatin 20 mg tablet See Rx Instructions .Route 04/02/24 .COMPLEX #90 tabs spironolactone 25 mg tablet 25 mg PO DAILY #90 tabs 08/20/24 (Aldactone) metoprolol succinate 50 mg See Rx Instructions .Route 11/13/24 tablet,extended release 24 hr .COMPLEX #90 tabs apixaban 5 mg (74 tabs) tablets in See Rx Instructions PO .COMPLEX 11/15/24 a dose pack ([employer] DVT-PE Treat #74 ea 30D Start) Allergies Allergy/AdvReac Type Severity Reaction Status Date / Time levofloxacin (From [employer]) Allergy Mild Rash Verified 04/05/24 11:49 Review of Systems Const: Denies: fever(s) or chills Card: Denies: chest pain Resp: Denies: dyspnea GI: Denies: abdominal pain : Denies: dysuria, urinary frequency or urinary urgency Musc: Reports: extremity swelling; Denies: neck pain or back pain Skin/Breast: Denies: rash PFSH ED PFSH: Medical History Fracture of posterior malleolus of left tibia Fracture of distal end of tibia with fibula Renal stones History of nonmelanoma skin cancer Mitral valve regurgitation Stress-induced cardiomyopathy Palpitations History of CVA (cerebrovascular accident) History of IL (myocardial infarction) Surgical History Status post laser lithotripsy of ureteral calculus H/O section S/P hysterectomy S/P cholecystectomy Family History Father , 86 leukemia Congestive heart failure (CHF) Cancer Mother Blood clot in vein Social History Smoking and tobacco/nicotine status: never used tobacco/nicotine Physical Exam Const: GENERAL APPEARANCE: cooperative ORIENTATION/CONSCIOUSNESS: Yes awake, Yes oriented to person, Yes oriented to place and Yes oriented to time HENMT: COMMON NORMALS: normocephalic, atraumatic and hearing grossly normal bilaterally HEAD & SCALP: normocephalic and atraumatic Resp: COMMON NORMALS: normal respiratory effort, No retractions, No use of accessory muscles and clear to auscultation bilaterally AUSCULTATION: clear to auscultation bilaterally Cardio: COMMON NORMALS: regular rate, regular rhythm and No murmurs present (Cardio) RATE: regular rate RHYTHM: regular rhythm GI: COMMON NORMALS: Soft to palpation and No hepatosplenomegaly present AUSCULTATION: Yes normoactive bowel sounds PALPATION: Yes Soft to palpation, No Tenderness to palpation present (GI), No Guarding due to palpation present (GI) and Yes No hepatosplenomegaly present Extremity: COMMON NORMALS: normal to inspection, capillary refill normal, no clubbing, cyanosis or edema, no calf tenderness and no pedal edema OTHER: Negative Homans Neuro: SENSORIUM/ORIENTATION: Yes oriented to person, Yes oriented to place and Yes oriented to time Skin: COMMON NORMALS: no rashes or lesions noted GENERAL SKIN EXAM: no rashes or lesions noted Course Vital Signs: Vital signs: Vital Signs Temperature 98.1 F 11/15/24 08:23 Pulse Rate 88 11/15/24 10:42 Respiratory Rate 14 11/15/24 10:42 Blood Pressure 109/67 11/15/24 10:42 Pulse Oximetry 96 11/15/24 10:42 Oxygen Delivery Me thod Room Air 11/15/24 08:23 MDM - Extremity (Nontraumatic) Medical Decision Making Venous duplex confirms clot in the left leg. Patient has normal vital signs no tachycardia no hypoxia no chest pain. Give Lovenox initiated Eliquis. Discharge home improved. Reviewed with patient is very important that she remain on the Eliquis till the physician tells her specifically to stop. Medical Records I reviewed the patient's medical records. Lab Data I reviewed the patient's lab results. 11/15/24 09:43 11/15/24 09:43 Laboratory Results WBC 7.46 10^3/uL (3.29-11.43) 11/15/24 09:43 RBC 4.30 10^6/uL (3.85-5.65) 11/15/24 09:43 Hgb 13.70 g/dL (11.27-16.99) 11/15/24 09:43 Hct 41.9 % (36-47) 11/15/24 09:43 MCV 97.4 fl (85-98) 11/15/24 09:43 MCH 31.9 pg (27-33) 11/15/24 09:43 MCHC 32.7 g/dL (30-55) 11/15/24 09:43 RDW 12.4 % (12.1-15.1) 11/15/24 09:43 Plt Count 169 10^3/cmm (157-399) 11/15/24 09:43 MPV 10.0 fL (7.4-10.4) 11/15/24 09:43 Neut % (Auto) 67.8 % 11/15/24 09:43 Lymph % (Auto) 19.7 % 11/15/24 09:43 Mckinley % (Auto) 9.1 % 11/15/24 09:43 Eos % (Auto) 2.4 % 11/15/24 09:43 Baso % (Auto) 0.7 % 11/15/24 09:43 Neut # (Auto) 5.06 10^3/uL (1.8-7.7) 11/15/24 09:43 Lymph # (Auto) 1.5 10^3/uL (0.8-4.8) 11/15/24 09:43 Mckinley # (Auto) 0.7 10^3/uL (0.2-0.9) 11/15/24 09:43 Eos # (Auto) 0.2 10^3/uL (0.0-0.8) 11/15/24 09:43 Baso # (Auto) 0.1 10^3/uL (0.0-0.1) 11/15/24 09:43 Nucleated RBC % (auto) 0 % 11/15/24 09:43 Nucleated RBCs # 0.0 /100WBC 11/15/24 09:43 Sodium 138 mmol/L (136-145) 11/15/24 09:43 Potassium 4.1 mmol/L (3.5-5.1) 11/15/24 09:43 Chloride 102 mmol/L (98-107) 11/15/24 09:43 Carbon Dioxide 24 mmol/L (22-29) 11/15/24 09:43 Anion Gap 16.1 (5-19) 11/15/24 09:43 BUN 13 mg/dL (8-23) 11/15/24 09:43 Creatinine 0.8 mg/dL (0.5-0.9) 11/15/24 09:43 GFR Calculation Not Reportable 11/15/24 09:43 Glucose 94 mg/dL (65-115) 11/15/24 09:43 Calculated Osmolality 286 mOsm/kg (285-295) 11/15/24 09:43 Calcium 9.5 mg/dL (8.5-10.5) 11/15/24 09:43 Total Bilirubin 0.7 mg/dL (0.15-1.2) 11/15/24 09:43 AST 22 U/L (0-32) 11/15/24 09:43 ALT 16 U/L (0-33) 11/15/24 09:43 Alkaline Phosphatase 90 U/L (35-105) 11/15/24 09:43 Total Protein 7.5 g/dL (6.6-8.7) 11/15/24 09:43 Albumin 4.3 g/dL (3.5-5.2) 11/15/24 09:43 Globulin 3.2 g/dL (1.3-4.6) 11/15/24 09:43 All radiology interpretation(s) finalized by discharge Discharge Plan Discharge Patient Disposition: Home Clinical Impression: Deep vein thrombosis of lower extremity Condition: Stable Prescriptions: Anthony Grey DVT-PE Treat 30D Start 5 mg (74 tabs) tablets,dose pack See Rx Instructions .ROUTE .COMPLEX Qty: 74 0RF Rx Instructions: orally per package directions No Action multivitamin Tablet 1 tab PO DAILY folic acid 1 mg tablet 1 mg PO DAILY clopidogrel [Plavix] 75 mg tablet 75 mg PO DAILY levetiracetam 500 mg tablet 500 mg PO BID cholecalciferol (vitamin D3) 25 mcg (1,000 unit) capsule 25 mcg PO DAILY (DME) Lace Up Ankle Brace See Rx Instructions .Route .MEDSUPPLY Qty: 1 0RF Rx Instructions: As directed cephalexin 500 mg capsule 500 mg PO TID Qty: 15 0RF prednisone 20 mg tablet 20 mg PO BID Qty: 10 0RF azithromycin 250 mg tablet See Rx Instructions PO .COMPLEX Qty: 6 0RF Rx Instructions: For 250 mg dose pack: take 500 mg today (day 1), then 250 mg for 4 days (days 2-5) PO neomycin-polymyxin B-dexameth [Maxitrol] 3.5mg/mL-10,000 unit/mL-0.1 % drops,suspension 2 drp ophthalmic (eye) Q2H Qty: 5 0RF (DME) cam walking boot See Rx Instructions .ROUTE .MEDSUPPLY Qty: 1 0RF Rx Instructions: As directed nitroglycerin [Nitrostat] 0.4 mg tablet, sublingual 0.4 mg SUBLINGUAL Q5M PRN (Reason: chest pain) 30 Days Qty: 25 6RF Rx Instructions: do not exceed 3 doses per episode lorazepam 0.5 mg tablet 0.5 mg PO TID PRN (Reason: stress/muscle spasm) Qty: 90 5RF atorvastatin 20 mg tablet See Rx Instructions .ROUTE .COMPLEX Qty: 90 3RF Dose Instruction: TAKE ONE TABLET BY MOUTH DAILY Rx Instructions: TAKE ONE TABLET BY MOUTH DAILY spironolactone [Aldactone] 25 mg tablet 25 mg PO DAILY Qty: 90 3RF metoprolol succinate 50 mg tablet extended release 24 hr See Rx Instructions .ROUTE .COMPLEX Qty: 90 3RF Dose Instruction: TAKE 1/2 TO 1 TABLET BY MOUTH EVERY DAY Rx Instructions: TAKE 1/2 TO 1 TABLET BY MOUTH EVERY DAY Discharge Orders: Discharge ED (Routine); Ordered 11/15/24 Ordered By: Paul Peterson Referrals: Efrain Mckeon DO [Primary Care Provider, [facility]] Discharge Diet: Usual diet Discharge Activity: Resume usual activity Patient Instructions: Deep Vein Thrombosis (ED), Opioid Safety, Pain Management Activity Restrictions/Additional Instructions: Thank you for choosing [facility] for your healthcare needs today. It is very important that you follow up as instructed or that you return to the Emergency Department should you have concerns or if your condition changes or worsens in any way. You were seen in the emergency room with complaints of left leg pain. On ultrasound it did show that you have a DVT in the left leg. We have given you an initial injection of Lovenox here and we will start you on Eliquis. You should follow-up with your doctor to continue the Eliquis until you are specifically told it can be stopped. Print Language: Brazilian Coding Level of Care Code [employer] Dist[employer] for Chiara Acuña
[2024-11-15 09:55] LABS: Basophils # 0.1 10^3/uL (0.0-0.1); Basophils % 0.7 %; Eosinophils # 0.2 10^3/uL (0.0-0.8); Eosinophils % 2.4 %; Hematocrit 41.9 % (36-47); Lymphocytes # 1.5 10^3/uL (0.8-4.8); Lymphocytes % 19.7 %; Mean Corpuscular HGB Conc 32.7 g/dL (30-55); Mean Corpuscular Hemoglobin 31.9 pg (27-33); Mean Corpuscular Volume 97.4 fl (85-98); Monocytes # 0.7 10^3/uL (0.2-0.9); Monocytes % 9.1 %; Neutrophils # 5.06 10^3/uL (1.8-7.7); Neutrophils % 67.8 %; Nucleated Red Blood Cells % 0 %; Platelet Count 169 10^3/cmm (157-399); Red Cell Distribution Width 12.4 % (12.1-15.1); White Blood Count 7.46 10^3/uL (3.29-11.43)
[2024-11-15] MEDS: enoxaparin 60 mg/0.6 mL Syringe SUBCUT (10:13)
[2024-11-15 10:14] LABS: Alanine Aminotransferase 16 U/L (0-33); Albumin Level 4.3 g/dL (3.5-5.2); Alkaline Phosphatase 90 U/L (35-105); Anion Gap 16.1 (5-19); Aspartate Amino Transferase 22 U/L (0-32); Blood Urea Nitrogen 13 mg/dL (8-23); Calcium 9.5 mg/dL (8.5-10.5); Carbon Dioxide 24 mmol/L (22-29); Chloride 102 mmol/L (98-107); Creatinine Clr Calc Pharmacy 53.5089; Globulin 3.2 g/dL (1.3-4.6); Glucose 94 mg/dL (65-115); Osmolality Calculated 286 mOsm/kg (285-295); Potassium 4.1 mmol/L (3.5-5.1); Sodium 138 mmol/L (136-145); Total Bilirubin 0.7 mg/dL (0.15-1.2); Total Protein 7.5 g/dL (6.6-8.7)
[2024-11-15 10:42] VITALS: BP 109/67; PULSE 88; RESP 14; O2SAT 96
== END 2024-11-15 10:44 | disposition home or self-care (01) ==
PROVIDERS: Emergency Provider Family Medicine; PCP Family Medicine
DX: I82.432 Acute embolism and thrombosis of left popliteal vein (principal); Z85.828 Personal history of other malignant neoplasm of skin; Z86.73 Personal history of transient ischemic attack (TIA), and cerebral infarction without residual deficits; Z79.02 Long term (current) use of antithrombotics/antiplatelets
CPT/HCPCS: 36415; 80053; 85025; 93971; 96372; 99284; J1650

== ENCOUNTER 2024-11-29 10:24 | Outpatient (CLI) | payer MEDICARE, OTHER, SELFPAY ==
--- NOTE | 2024-11-29 11:00 | CTR_ITS ---
PROCEDURE INFORMATION: Exam: CTA Chest With Contrast Exam date and time: 11/29/2024 11:16 AM Age: 73 years old Clinical indication: Shortness of breath x 2 weeks, left lower extremity blood clots; Additional info: R06.00 - dyspnea, unspecified TECHNIQUE: Imaging protocol: Computed tomographic angiography of the chest with contrast. Exam focused on the arteries. 3D rendering (Not supervised by radiologist): MIP and/or 3D reconstructed images were created by the technologist. Radiation optimization: All CT scans at this facility use at least one of these dose optimization techniques: automated exposure control; mA and/or kV adjustment per patient size (includes targeted exams where dose is matched to clinical indication); or iterative reconstruction. Contrast material: OMNIPAQUE 350; Contrast volume: 100 ml; Contrast route: INTRAVENOUS (IV); COMPARISON: CT angio chest PE protcl [id number] 08/12/2022 1:57 AM RADIATION DOSE METRICS: Total DLP (mGy-cm): 182.53 FINDINGS: Pulmonary arteries: Normal. No pulmonary emboli. Aorta: Unremarkable. No aortic aneurysm. No aortic dissection. Lungs: Ovoid calcified right upper lobe pulmonary nodule without change. Pleural spaces: Unremarkable. No pneumothorax. No pleural effusion. Heart: Unremarkable. No cardiomegaly. No pericardial effusion. Lymph nodes: Unremarkable. No enlarged lymph nodes. Gallbladder and biliary ducts: Cholecystectomy clips are noted. A few small right renal stones are partially visualized. Bones/joints: Unremarkable. No acute fracture. Soft tissues: Unremarkable. CT/CT angio chest PE protcl [id number] IMPRESSION: No pulmonary emboli.
[2024-11-29] MEDS: iohexol 350 mg/mL 500 mL Btl (per mL) IV (11:28)
== END 2024-11-29 10:25 | disposition home or self-care (01) ==
PROVIDERS: PCP Family Medicine; Visit Provider Family Medicine
DX: R06.00 Dyspnea, unspecified (principal); R91.1 Solitary pulmonary nodule; Z90.49 Acquired absence of other specified parts of digestive tract; N20.0 Calculus of kidney
CPT/HCPCS: 71275

== ENCOUNTER 2025-02-03 11:31 | Emergency (ER) | payer MEDICARE, OTHER, SELFPAY ==
--- NOTE | 2025-02-03 11:32 | XRR_ITS ---
PROCEDURE INFORMATION: Exam: XR Chest Exam date and time: 02/03/2025 12:05 PM Age: 74 years old Clinical indication: Dyspnea; Additional info: CVA TECHNIQUE: Imaging protocol: Radiologic exam of the chest. Views: 1 view. COMPARISON: CT angio chest PE protcl [id number] 11/29/2024 11:16 AM FINDINGS: Lungs: Round calcified granulomas in the right upper lung zone. The lungs are hyperinflated, consistent with underlying small airways disease. There is no evidence of focal pulmonary consolidation. Pleural spaces: Unremarkable. No pleural effusion. No pneumothorax. Heart/Mediastinum: Unremarkable. No cardiomegaly. Bones/joints: Unremarkable. XR/XR chest 1V portable [id number] IMPRESSION: No acute cardiopulmonary process.
--- NOTE | 2025-02-03 11:32 | CTR_ITS ---
PROCEDURE INFORMATION: Exam: CTA Head With Contrast, Arteriography Exam date and time: 02/03/2025 11:39 AM Age: 74 years old Clinical indication: Weakness; Additional info: CVA TECHNIQUE: Imaging protocol: Computed tomographic angiography of the head with contrast. Exam focused on the arteries. 3D rendering (Not supervised by radiologist): MIP and/or 3D reconstructed images were created by the technologist. Radiation optimization: All CT scans at this facility use at least one of these dose optimization techniques: automated exposure control; mA and/or kV adjustment per patient size (includes targeted exams where dose is matched to clinical indication); or iterative reconstruction. Contrast material: OMNIPAQUE 350; Contrast volume: 80 ml; Contrast route: INTRAVENOUS (IV); COMPARISON: CT head thrombolytic [id number] 02/03/2025 11:31 AM RADIATION DOSE METRICS: Total DLP (mGy-cm): 362.52 FINDINGS: ANTERIOR CIRCULATION: Right internal carotid artery: Calcified atheroma of the right cavernous ICA but no significant stenosis. Right middle cerebral artery: No occlusion or significant stenosis. No aneurysm. Right anterior cerebral artery: No occlusion or significant stenosis. No aneurysm. Left internal carotid artery: Calcified atheroma of the left cavernous ICA but no significant stenosis. Left middle cerebral artery: No occlusion or significant stenosis. No aneurysm. Left anterior cerebral artery: No occlusion or significant stenosis. No aneurysm. POSTERIOR CIRCULATION: Right vertebral artery: No occlusion or significant stenosis. No aneurysm. Left vertebral artery: No occlusion or significant stenosis. No aneurysm. Basilar artery: No occlusion or significant stenosis. No aneurysm. Right posterior cerebral artery: No occlusion or significant stenosis. No aneurysm. Left posterior cerebral artery: No occlusion or significant stenosis. No aneurysm. Brain: Encephalomalacia in the right occipital lobe, right frontal lobe and left cerebellum, from prior insult. There are bilateral periventricular white matter and centrum semiovale hypodensities, consistent with chronic ischemic small vessel disease. Age related diffuse parenchymal volume loss. No recent infarct, intracranial bleed or mass effect. Cerebral ventricles: Ex vacuo dilatation of the ventricles. Bones/joints: Unremarkable. No acute fracture. Soft tissues: Unremarkable. PROCEDURE INFORMATION: Exam: CTA Neck With Contrast Exam date and time: 02/03/2025 11:39 AM Age: 74 years old Clinical indication: Weakness; Additional info: CVA TECHNIQUE: Imaging protocol: Computed tomographic angiography of the neck with contrast. Exam focused on the cervical segments of the vasculature. 3D rendering (Not supervised by radiologist): MIP and/or 3D reconstructed images were created by the technologist. Radiation optimization: All CT scans at this facility use at least one of these dose optimization techniques: automated exposure control; mA and/or kV adjustment per patient size (includes targeted exams where dose is matched to clinical indication); or iterative reconstruction. Contrast material: OMNIPAQUE 350; Contrast volume: 80 ml; Contrast route: INTRAVENOUS (IV); COMPARISON: CT angio chest PE protcl [id number] 11/29/2024 11:16 AM RADIATION DOSE METRICS: Total DLP (mGy-cm): 362.52 FINDINGS: Right common carotid artery: Calcified atheroma of the right common carotid artery but no significant stenosis. Right internal carotid artery: Calcified atheroma of the right proximal ICA but no significant stenosis. Right external carotid artery: No occlusion or stenosis of the origin. Left common carotid artery: No stenosis. No dissection or occlusion. Left internal carotid artery: Calcified atheroma of the left proximal ICA but no significant stenosis. Left external carotid artery: No occlusion or stenosis of the origin. Right vertebral artery: No stenosis. No dissection or occlusion. Left vertebral artery: No stenosis. No dissection or occlusion. Soft tissues: Normal. No significant soft tissue swelling. Bones/joints: The cervical spine demonstrates mild degenerative changes at multiple levels. Lungs: Calcified granulomas in the right upper lobe. CT/CT angio headneck* [id number] IMPRESSION: 1. No large vessel occlusion. 2. No large territorial infarct or intracranial bleed. IMPRESSION: No significant arterial stenosis. REFERENCES: NASCET CRITERIA. The degree of stenosis in the cervical segment of the internal carotid artery is based on NASCET criteria. Normal is no stenosis. Mild is less than 50% stenosis. Moderate is 50-69% stenosis. Severe is 70% to 99% stenosis. Total occlusion is no detectable patent lumen.
--- NOTE | 2025-02-03 11:32 | CTR_ITS ---
PROCEDURE INFORMATION: Exam: CT Head Without Contrast Exam date and time: 02/03/2025 11:31 AM Age: 74 years old Clinical indication: Stroke-like symptoms; Speech disturbance; Additional info: Symptoms of acute stroke TECHNIQUE: Imaging protocol: Computed tomography of the head without contrast. Radiation optimization: All CT scans at this facility use at least one of these dose optimization techniques: automated exposure control; mA and/or kV adjustment per patient size (includes targeted exams where dose is matched to clinical indication); or iterative reconstruction. Other technique: STROKE PROTOCOL was implemented. COMPARISON: CT head wo con* [id number] 12/08/2018 6:45 PM RADIATION DOSE METRICS: Total DLP (mGy-cm): 1076.68 FINDINGS: Brain: There are bilateral periventricular white matter and centrum semiovale hypodensities, consistent with chronic ischemic small vessel disease. Age related diffuse parenchymal volume loss. Encephalomalacia in the right parietal lobe, from prior insult. Mineralization of bilateral basal ganglia, age-related. No recent infarct, intracranial bleed or mass effect. Old left cerebellar infarct. Encephalomalacia in the right frontal lobe, from prior infarct. Cerebral ventricles: Ex vacuo dilatation of the ventricles. Paranasal sinuses: Visualized sinuses are unremarkable. No fluid levels. Mastoid air cells: Visualized mastoid air cells are well aerated. Bones: Unremarkable. No acute fracture. Soft tissues: Unremarkable. CT/CT head thrombolytic [id number] IMPRESSION: No large territorial infarct or intracranial bleed. ASSESSMENT: ASPECTS (Eufemia Stroke Program Early CT Score) is 10.
[2025-02-03 11:38] VITALS: BP 122/61; PULSE 93; RESP 16; TEMP 36.9; O2SAT 96
--- NOTE | 2025-02-03 11:45 | ECG_ITS ---
[facility] Date: 2025-02-03 Pat Name: Gabi Orozco Department: Room: Gender: Female Manager Client Support: : 1950 Requested By: Roselia Pederson Order Number: [id number] Colette MD: Mc Whitney M.D. Measurements Intervals [place] Rate: 77 P: 70 MD: 141 QRS: 69 QRSD: 76 T: 53 QT: 387 QTc: 441 Interpretive Statements SINUS RHYTHM Compared to ECG 02/03/2025 11:49:19 No significant changes Electronically Signed On 02-03-2025 17:09:39 CDT by Mc Whitney M.D. [email or web address]
--- OUTSIDE RECORDS SUMMARY | 2025-02-03 11:46 | XMS_ITS | Clinical Summary ---
Author Organization [facility] Address [address] [place] [address] Care Team Providers Care Jet Man Name Role Phone Unavailable Primary Care Provider Unavailabl e Allergies No known active allergies Medications MULTI-VITAMIN HI-PO ORAL Take by mouth daily. Active metoprolol succinate ER 24 hour (TOPROL XL) 50 mg Oral tablet Take 50 mg by mouth daily. Active atorvastatin (LIPITOR) 20 mg Oral tablet Take 20 mg by mouth Daily LATE. Active aspirin (FIFI) 325 mg Oral tablet Take 325 mg by mouth daily. Active LORazepam (ATIVAN) 0.5 mg tablet 07/27/2013 Active bumetanide (BUMEX) 1 mg tablet 06/10/2014 Active spironolactone (ALDACTONE) 25 mg tablet 02/28/2017 Active Active Problems Problem Noted Date Diagnosed Date Nasal septal deviation 04/06/2012 Family History Medical History Relation Name Comments Respiratory Disease Brother Depression Daughter Unknown Maternal Grandfather Unknown Maternal Grandmother Anemia Mother High Cholesterol Mother Unknown Paternal Grandfather Unknown Paternal Grandmother High Cholesterol Sister Relation Name Status Comments Brother Alive Daughter Alive Father Alive Maternal Grandfather Maternal Grandmother Mother Alive Paternal Grandfather Paternal Grandmother Sister Alive Son Alive Social History Tobacco Use Types Packs/Day Years Used Date Smoking Tobacco: Never Smokeless Tobacco: Never Alcohol Use Standard Drinks/Week Comments No 0 (1 standard drink = 0.6 oz pur e alcohol) Comments Unknown Sex and Gender Information Value Date Recorded Sex Assigned at Not on file 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 Gender Identity Not on file Sexual Orientation Not on file Last Filed Vital Signs Vital Sign Reading Time Taken Comments Blood Pressure 122/79 03/03/2017 2:39 PM CDT Pulse 86 03/03/2017 2:39 PM CDT Temperature - - Respiratory Rate - - Oxygen Saturation - - Inhaled Oxygen Concentration - - Weight 53.1 kg (117 lb) 03/03/2017 2:39 PM CDT Height 160 cm (5' 3 ) 03/03/2017 2:39 PM CDT Body Mass Index 20.73 03/03/2017 2:39 PM CDT Plan of Treatment Health Maintenance Due Date Last Done Comments DTAP/TDAP/TD VACCINES (1 - Tdap) 1969 BREAST CANCER SCREENING 1990 COLORECTAL SCREENING 12/18/1995 Colorectal Cancer Screening 12/18/1995 FIT-DNA Q 3 years 12/18/1995 FIT/FOBT Q 1 year 12/18/1995 Flex Sig/CT Colonography Q 5 years 12/18/1995 PNEUMOCOCCAL VACCINE 50+ YEARS (1 of 1 - PCV) 12/18/19 ZOSTER VACCINE (1 of 2) 2000 OSTEOPOROSIS SCREENING 12/18/2015 INFLUENZA VACCINE (#1) 2025 RSV VACCINE (60+ or ) (1 - 1-dose 75+ series) 2025 Insurance BCBS
[2025-02-03] MEDS: iohexol 350 mg/mL 500 mL Btl (per mL) IV (11:48)
--- NOTE | 2025-02-03 11:49 | ECG_ITS ---
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 Measurements Intervals [place] Rate: 87 P: 70 [place]: 144 QRS: 73 QRSD: 74 T: 55 QT: 375 QTc: 452 Interpretive Statements SINUS RHYTHM Compared to ECG 07/19/2022 22:31:04 No significant changes Electronically Signed On 02-03-2025 17:07:10 CDT by Mc Whitney M.D. [email or web address]
--- NOTE | 2025-02-03 11:55 | W.ED.NEUROSD ---
HPI - Neuro Symptoms/Deficit General: Chief Complaint: Neuro Symptoms/Deficit Stated Complaint: left side weakness Time Seen by Provider: 02/03/25 11:32 Source: patient Mode of arrival: ambulatory Limitations: no limitations History of Present Illness: 74-year-old female states she has been having chest pain since Tuesday. States it has been a pressure type pains in her chest with some radiation to her jaw with diaphoresis and nausea. States she has had a history of [place] in the past. EMS and route called a stroke alert stated she had some facial droop that now is since resolved she states that she has not had any weakness that she has noticed or slurred speech. Related Data Home Medications ?Medication ?Instructions ?Recorded ?Confirmed cholecalciferol (vitamin D3) 25 25 mcg PO DAILY 07/24/19 03/23/24 mcg (1,000 unit) capsule clopidogrel 75 mg tablet (Plavix) 75 mg PO DAILY 07/24/19 11/27/24 levetiracetam 500 mg tablet 500 mg PO BID 07/24/19 03/23/24 multivitamin 1 tab PO DAILY 07/24/19 03/23/24 folic acid 1 mg tablet 1 mg PO DAILY 04/29/21 03/23/24 Previous Rx's ?Medication ?Instructions ?Recorded cam walking boot #1 ea 08/03/22 Lace Up Ankle Brace #1 ea 09/13/22 cephalexin 500 mg capsule 500 mg PO TID #15 caps 08/10/23 prednisone 20 mg tablet 20 mg PO BID #10 tabs 08/10/23 nitroglycerin 0.4 mg sublingual 0.4 mg sublingual Q5M PRN chest 08/24/23 tablet (Nitrostat) pain 30 days #25 tabs azithromycin 250 mg tablet See Rx Instructions PO .COMPLEX #6 02/24/24 tabs adwrkrbn-emmjmagxa-ufbygvls 3.5 2 drp ophthalmic (eye) Q2H #5 mL 02/24/24 mg/mL-10,000 unit/mL-0.1% eye drops (Maxitrol) atorvastatin 20 mg tablet See Rx Instructions .Route 04/02/24 .COMPLEX #90 tabs spironolactone 25 mg tablet 25 mg PO DAILY #90 tabs 08/20/24 (Aldactone) metoprolol succinate 50 mg See Rx Instructions .Route 11/13/24 tablet,extended release 24 hr .COMPLEX #90 tabs lorazepam 0.5 mg tablet 0.5 mg PO TID PRN stress/muscle 11/19/24 spasm #90 tabs apixaban 5 mg tablet 5 mg PO BID #180 tabs 12/18/24 Allergies Allergy/AdvReac Type Severity Reaction Status Date / Time levofloxacin (From Levaquin) Allergy Mild Rash Verified 11/27/24 11:10 [facility] ED PFSH: Medical History (Updated 02/03/25 @ 14:28 by Luz Lawrence MD) Fracture of posterior malleolus of left tibia Fracture of distal end of tibia with fibula Renal stones History of nonmelanoma skin cancer Mitral valve regurgitation Stress-induced cardiomyopathy Palpitations History of CVA (cerebrovascular accident) History of [place] (myocardial infarction) Surgical History Status post laser lithotripsy of ureteral calculus H/O section S/P hysterectomy S/P cholecystectomy Family History Father , 86 leukemia Congestive heart failure (CHF) Cancer Mother Blood clot in vein Social History Smoking and tobacco/nicotine status: never used tobacco/nicotine NIH stroke score NIHSS: Level Of Consciousness - 1a: 0 Level Of Consciousness Questions - 1b: Both Correct Level Of Consciousness Commands - 1c: Both Correct Best Gaze - 2: Normal Visual Lemons - 3: No Visual Loss Facial Palsy - 4: Normal Motor Arm Right - 5: No Drift Motor Arm Left - 5: No Drift Motor Leg Right - 6: No Drift Motor Leg Left - 6: No Drift Limb Ataxia - 7: Absent Sensory - 8: Normal Best Language - 9: No Aphasia Dysarthia - 10: Normal Extinction And Inattention - 11: 0 Score: Total Score: 0 Physical Exam Const: COMMON NORMALS: patient oriented x3 HENMT: COMMON NORMALS: normocephalic and atraumatic HEAD & SCALP: normocephalic and atraumatic Eye: COMMON NORMALS: Equal, round and reactive pupils present and EOMs intact bilaterally PUPIL: Yes Equal, round and reactive pupils present Neck/C-Spine: COMMON NORMALS: full ROM and supple Chest: COMMONS NORMALS: normal inspection of the chest and normal palpation of entire chest wall Resp: COMMON NORMALS: normal respiratory effort, No retractions, No use of accessory muscles and clear to auscultation bilaterally AUSCULTATION: clear to auscultation bilaterally Cardio: COMMON NORMALS: regular rate, regular rhythm and No murmurs present (Cardio) RATE: regular rate RHYTHM: regular rhythm GI: COMMON NORMALS: Normal to inspection, nondistended, normoactive bowel sounds present, Soft to palpation, non-tender and no masses PALPATION: Yes Soft to palpation Extremity: COMMON NORMALS: normal to inspection and full ROM Neuro: COMMON NORMALS: patient oriented x3, moves all extremities and no focal motor deficits Psych: COMMON NORMALS: mental status grossly normal, Normal thought process present and cooperative THOUGHT PROCESS: Normal thought process present Skin: COMMON NORMALS: no rashes or lesions noted and no wounds GENERAL SKIN EXAM: no rashes or lesions noted Course Vital Signs: Vital signs: Vital Signs Temperature 98.5 F 02/03/25 11:38 Pulse Rate 76 02/03/25 14:00 Respiratory Rate 16 02/03/25 11:38 Blood Pressure 113/48 02/03/25 14:00 Pulse Oximetry 97 02/03/25 14:00 Oxygen Delivery Me thod Room Air 02/03/25 14:00 Clincial Decision Support The following clinical decision support tools were used to aid in care of the patient HEART Score -> History: Slightly Suspicous, EKG: Normal, Age: 65 or more yrs, Risk Factors: >/=3 Risk Factors, Troponin: Baseline Trop <16 ng/L. Resulting HEART Score: 4. MDM - Neuro Symptoms/Deficit Medical Decision Making Patient presents here with chest pain since resolved she also had some questionable left-sided weakness but has no signs of stroke here imaging here is normal troponins are normal I did offer her admission she states she feels much better and does not want to stay a shared decision making was made she is yuan follow-up with her PCP next week if she has any more pain she is to return she understands agrees to plan she has no signs of dissection or pulmonary embolism. Medical Records I reviewed the patient's medical records. Lab Data I reviewed the patient's lab results. 02/03/25 12:03 02/03/25 12:03 Radiology Impressions Chest X-Ray 02/03/25 11:32 IMPRESSION: No acute cardiopulmonary process. Head CT 02/03/25 11:32 IMPRESSION: No large territorial infarct or intracranial bleed. ASSESSMENT: ASPECTS ([place] Stroke Program Early CT Score) is 10. ADDENDUM: 02/03/25 1147 THIS REPORT CONTAINS FINDINGS THAT MAY BE CRITICAL TO PATIENT CARE. The findings were verbally communicated via telephone conference with LUZ LAWRENCE at 11:46 AM CDT on 02/03/2025. The findings were acknowledged and understood. Head/Neck CTA 02/03/25 11:32 IMPRESSION: 1. No large vessel occlusion. 2. No large territorial infarct or intracranial bleed. IMPRESSION: No significant arterial stenosis. REFERENCES: NASCET CRITERIA. The degree of stenosis in the cervical segment of the internal carotid artery is based on NASCET criteria. Normal is no stenosis. Mild is less than 50% stenosis. Moderate is 50-69% stenosis. Severe is 70% to 99% stenosis. Total occlusion is no detectable patent lumen. Laboratory Results WBC 6.76 10^3/uL (3.29-11.43) 02/03/25 12:03 RBC 4.02 10^6/uL (3.85-5.65) 02/03/25 12:03 Hgb 12.90 g/dL (11.27-16.99) 02/03/25 12:03 Hct 39.7 % (36-47) 02/03/25 12:03 MCV 98.8 fl (85-98) H 02/03/25 12:03 MCH 32.1 pg (27-33) 02/03/25 12:03 MCHC 32.5 g/dL (30-55) 02/03/25 12:03 RDW 12.6 % (12.1-15.1) 02/03/25 12:03 Plt Count 194 10^3/cmm (157-399) 02/03/25 12:03 MPV 9.8 fL (7.4-10.4) 02/03/25 12:03 Neut % (Auto) 56.9 % 02/03/25 12:03 Lymph % (Auto) 30.3 % 02/03/25 12:03 [place] % (Auto) 10.4 % 02/03/25 12:03 Eos % (Auto) 1.6 % 02/03/25 12:03 Baso % (Auto) 0.7 % 02/03/25 12:03 Neut # (Auto) 3.84 10^3/uL (1.8-7.7) 02/03/25 12:03 Lymph # (Auto) 2.1 10^3/uL (0.8-4.8) 02/03/25 12:03 [place] # (Auto) 0.7 10^3/uL (0.2-0.9) 02/03/25 12:03 Eos # (Auto) 0.1 10^3/uL (0.0-0.8) 02/03/25 12:03 Baso # (Auto) 0.1 10^3/uL (0.0-0.1) 02/03/25 12:03 Nucleated RBC % (auto) 0 % 02/03/25 12:03 Nucleated RBCs # 0.0 /100WBC 02/03/25 12:03 PT 13.80 SECONDS (12.1-14.9) 02/03/25 12:03 INR 0.99 (0.8-1.2) 02/03/25 12:03 APTT 26.6 SECONDS (23.9-36.7) 02/03/25 12:03 Sodium 139 mmol/L (136-145) 02/03/25 12:03 Potassium 4.7 mmol/L (3.5-5.1) 02/03/25 12:03 Chloride 105 mmol/L (98-107) 02/03/25 12:03 Carbon Dioxide 24 mmol/L (22-29) 02/03/25 12:03 Anion Gap 14.7 (5-19) 02/03/25 12:03 BUN 12 mg/dL (8-23) 02/03/25 12:03 Creatinine 0.8 mg/dL (0.5-0.9) 02/03/25 12:03 GFR Calculation Not Reportable 02/03/25 12:03 Glucose 87 mg/dL (65-115) 02/03/25 12:03 POC Glucose 87 mg/dL (70-110) 02/03/25 11:44 Calculated Osmolality 287 mOsm/kg (285-295) 02/03/25 12:03 Calcium 9.1 mg/dL (8.5-10.5) 02/03/25 12:03 Total Bilirubin 0.7 mg/dL (0.15-1.2) 02/03/25 12:03 AST 22 U/L (0-32) 02/03/25 12:03 ALT 16 U/L (0-33) 02/03/25 12:03 Alkaline Phosphatase 66 U/L (35-105) 02/03/25 12:03 Troponin T Baseline < 6 ng/L (0-10) 02/03/25 12:03 Troponin T 120 Minute < 6.0 ng/L (0-10) 02/03/25 13:55 Delta Troponin T 0 ABS# (0-10) 02/03/25 13:55 Total Protein 6.0 g/dL (6.6-8.7) L 02/03/25 12:03 Albumin 4.1 g/dL (3.5-5.2) 02/03/25 12:03 Globulin 1.9 g/dL (1.3-4.6) 02/03/25 12:03 All radiology interpretation(s) finalized by discharge EKG Data EKG 1: I personally reviewed and interpreted this EKG as follows: EKG interpretation date: 02/03/25 EKG interpretation time: 11:49 Interpretation: nsr hr [address] elevation qrs 74 qtc 419 Discharge Plan Discharge Patient Disposition: Home Clinical Impression: Chest pain Condition: Stable Prescriptions: No Action multivitamin Tablet 1 tab PO DAILY folic acid 1 mg tablet 1 mg PO DAILY clopidogrel [Plavix] 75 mg tablet 75 mg PO DAILY levetiracetam 500 mg tablet 500 mg PO BID cholecalciferol (vitamin D3) 25 mcg (1,000 unit) capsule 25 mcg PO DAILY (DME) Lace Up Ankle Brace See Rx Instructions .Route .MEDSUPPLY Qty: 1 0RF Rx Instructions: As directed cephalexin 500 mg capsule 500 mg PO TID Qty: 15 0RF prednisone 20 mg tablet 20 mg PO BID Qty: 10 0RF azithromycin 250 mg tablet See Rx Instructions PO .COMPLEX Qty: 6 0RF Rx Instructions: For 250 mg dose pack: take 500 mg today (day 1), then 250 mg for 4 days (days 2-5) PO neomycin-polymyxin B-dexameth [Maxitrol] 3.5mg/mL-10,000 unit/mL-0.1 % drops,suspension 2 drp ophthalmic (eye) Q2H Qty: 5 0RF (DME) cam walking boot See Rx Instructions .ROUTE .MEDSUPPLY Qty: 1 0RF Rx Instructions: As directed nitroglycerin [Nitrostat] 0.4 mg tablet, sublingual 0.4 mg SUBLINGUAL Q5M PRN (Reason: chest pain) 30 Days Qty: 25 6RF Rx Instructions: do not exceed 3 doses per episode atorvastatin 20 mg tablet See Rx Instructions .ROUTE .COMPLEX Qty: 90 3RF Dose Instruction: TAKE ONE TABLET BY MOUTH DAILY Rx Instructions: TAKE ONE TABLET BY MOUTH DAILY spironolactone [Aldactone] 25 mg tablet 25 mg PO DAILY Qty: 90 3RF metoprolol succinate 50 mg tablet extended release 24 hr See Rx Instructions .ROUTE .COMPLEX Qty: 90 3RF Dose Instruction: TAKE 1/2 TO 1 TABLET BY MOUTH EVERY DAY Rx Instructions: TAKE 1/2 TO 1 TABLET BY MOUTH EVERY DAY lorazepam 0.5 mg tablet 0.5 mg PO TID PRN (Reason: stress/muscle spasm) Qty: 90 5RF apixaban 5 mg tablet 5 mg PO BID Qty: 180 1RF Discharge Orders: Discharge ED (Routine); Ordered 02/03/25 Ordered By: Luz Lawrence Referrals: Efrain Mckeon DO [Primary Care Provider, [facility]] - 4-7 days Discharge Diet: Advance as tolerated Discharge Activity: Resume usual activity Patient Instructions: Chest Pain (ED) Print Language: Turkish Coding Level of Care Code ED Extract Operator for Chiara Acuña
[2025-02-03 12:11] LABS: Hematocrit 39.7 % (36-47); Hemoglobin 12.90 g/dL (11.27-16.99); Mean Corpuscular HGB Conc 32.5 g/dL (30-55); Mean Corpuscular Hemoglobin 32.1 pg (27-33); Mean Corpuscular Volume 98.8 fl (85-98); Nucleated Red Blood Cells % 0 %; Platelet Count 194 10^3/cmm (157-399); Red Blood Count 4.02 10^6/uL (3.85-5.65); White Blood Count 6.76 10^3/uL (3.29-11.43)
[2025-02-03 12:25] LABS: INR 0.99 (0.8-1.2); Partial Thromboplastin Time 26.6 SECONDS (23.9-36.7); Prothrombin Time 13.80 SECONDS (12.1-14.9)
[2025-02-03 12:30] LABS: Troponin(5th) Baseline < 6 ng/L (0-10)
[2025-02-03 12:32] LABS: Alanine Aminotransferase 16 U/L (0-33); Albumin Level 4.1 g/dL (3.5-5.2); Alkaline Phosphatase 66 U/L (35-105); Anion Gap 14.7 (5-19); Aspartate Amino Transferase 22 U/L (0-32); Blood Urea Nitrogen 12 mg/dL (8-23); Calcium 9.1 mg/dL (8.5-10.5); Carbon Dioxide 24 mmol/L (22-29); Chloride 105 mmol/L (98-107); Creatinine Clr Calc Pharmacy 52.8871; Globulin 1.9 g/dL (1.3-4.6); Glucose 87 mg/dL (65-115); Osmolality Calculated 287 mOsm/kg (285-295); Potassium 4.7 mmol/L (3.5-5.1); Sodium 139 mmol/L (136-145); Total Protein 6.0 g/dL (6.6-8.7)
[2025-02-03 12:44] VITALS: BP 122/59; PULSE 72; O2SAT 98
--- NOTE | 2025-02-03 13:45 | ECG_ITS ---
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 Measurements Intervals [place] Rate: 72 P: 69 [place]: 137 QRS: 63 QRSD: 77 T: 49 QT: 393 QTc: 431 Interpretive Statements SINUS RHYTHM Compared to ECG 02/03/2025 12:59:13 No significant changes Electronically Signed On 02-03-2025 18:09:16 CDT by Mc Whitney M.D. [email or web address]
[2025-02-03 14:00] VITALS: BP 113/48; PULSE 76; O2SAT 97
[2025-02-03 14:20] LABS: Troponin 5 2HR < 6.0 ng/L (0-10); Troponin 5 2HR Delta 0 ABS# (0-10)
[2025-02-03 14:35] VITALS: BP 126/56; PULSE 80; O2SAT 97
== END 2025-02-03 14:36 | disposition home or self-care (01) ==
PROVIDERS: Emergency Provider Emergency Medicine; PCP Family Medicine
DX: R07.9 Chest pain, unspecified (principal); Z79.02 Long term (current) use of antithrombotics/antiplatelets; Z86.73 Personal history of transient ischemic attack (TIA), and cerebral infarction without residual deficits
CPT/HCPCS: 36415; 36416; 70450; 70496; 70498; 71045; 80053; 82962; 84484; 85025; 85610; 85730; 93005; 96374; 99285

== ENCOUNTER → 2025-02-06 15:09 | Outpatient (BNVA) | payer MEDICARE, OTHER, SELFPAY | PROVIDERS: PCP Family Medicine; Visit Provider Internal Medicine Cardiovascular Disease | DX: I51.81 Takotsubo syndrome (principal); I10 Essential (primary) hypertension; Z79.01 Long term (current) use of anticoagulants; Z86.718 Personal history of other venous thrombosis and embolism; Z86.73 Personal history of transient ischemic attack (TIA), and cerebral infarction without residual deficits; I25.2 Old myocardial infarction; R07.9 Chest pain, unspecified; R06.00 Dyspnea, unspecified; I42.9 Cardiomyopathy, unspecified | CPT/HCPCS: 99214 ==

== ENCOUNTER 2025-02-08 06:35 | Outpatient (CLI) | payer MEDICARE, OTHER, SELFPAY ==
--- NOTE | 2025-02-08 07:00 | USCV_ITS ---
Gabi Orozco Age: 74 Gender: F : 1950 Exam Date: 02/08/2025 06:56 Ordering Phys: Tex Gaston MD ([email or web address]) Technologist: Shane Diaz Exam Location: [facility] [place] Indication: sob BP: 124 / 66 HR: 78 Rhythm: Sinus Technical Quality: Adequate MEASUREMENTS (Male / Female) Normal Values 2D ECHO LV Diastolic Diameter PLAX 3.7 cm 4.2 - 5.9 / 3.9 - 5.3 cm IVS Diastolic Thickness 0.7 cm 0.6 - 1.0 / 0.6 - 0.9 cm IVS Systolic Thickness 1.0 cm LVPW Diastolic Thickness 0.8 cm 0.6 - 1.0 / 0.6 - 0.9 cm LVPW Systolic Thickness 1.3 cm LVOT Diameter 2.0 cm LV Ejection Fraction 2D Teich 61.0 % LV Ejection Fraction MOD 4C 66.2 % LV Ejection Fraction MOD 2C 64.4 % LV Ejection Fraction 2C AL 65.3 % LA Diameter 3.0 cm RA Systolic Volume 4C AL 20.6 ml RA Systolic Volume 4C MOD 20.0 ml LA Sys Volume AL 28.6 cm cubed LA Sys Volume Index AL 17.8 cm cubed/m squared Aorta at Sinotubular Diameter 1.7 cm IVC Diameter 1.5 cm M-MODE LA Ao Ratio MM 1.3 AV Cusp Separation MM 1.5 cm DOPPLER AV Peak Velocity 122.3 cm/s LVOT Peak Velocity 79.0 cm/s AV Area Cont Eq vti 2.2 cm squared AV Area Cont Eq pk 2.0 cm squared MV Peak Velocity 103.0 cm/s MV Area PHT 5.5 cm squared Mitral E to A Ratio 0.8 TV Peak Velocity 223.0 cm/s TR Peak Velocity 243.0 cm/s TR Peak Gradient 23.6 mmHg TR Mean Velocity 197.0 cm/s TR Mean Gradient 17.1 mmHg TR Velocity Time Integral 56.5 cm PV Peak Velocity 66.0 cm/s RV Ejection Time 0.3 s FINDINGS Left Ventricle Normal left ventricular size, systolic function and wall thickness, with no regional wall motion abnormalities. Left ventricular ejection fraction is estimated at 60 %. Grade I/IV diastolic dysfunction (abnormal relaxation filling pattern), normal to mildly elevated filling pressures. Right Ventricle The right ventricle is normal in size and function. Right Atrium The right atrium is normal in size. Left Atrium The left atrium is normal in size. Mitral Valve Structurally normal mitral valve. No mitral valve stenosis. Moderate mitral valve regurgitation. Aortic Valve Structurally normal aortic valve without significant sclerosis or stenosis. There is no aortic regurgitation. Tricuspid Valve Trace tricuspid valve regurgitation. Pulmonic Valve Trace pulmonary valve regurgitation. Pericardium Normal pericardium without effusion. Aorta Normal ascending aorta dimension. IVC The inferior vena cava appears normal. CONCLUSIONS Normal left ventricular size, systolic function and wall thickness, with no regional wall motion abnormalities. Left ventricular ejection fraction is estimated at 60 %. Grade I/IV diastolic dysfunction (abnormal relaxation filling pattern), normal to mildly elevated filling pressures. Structurally normal mitral valve. No mitral valve stenosis. Moderate mitral valve regurgitation. There is no pericardial effusion. Right atrial pressure is around 5 mm of mercury. Tex Gaston MD (Electronically Signed) Final Date: 17 February 2025 17:46 S
== END 2025-02-08 06:36 | disposition home or self-care (01) ==
PROVIDERS: PCP Family Medicine; Visit Provider Internal Medicine Cardiovascular Disease
DX: R07.9 Chest pain, unspecified (principal); R06.00 Dyspnea, unspecified; I42.9 Cardiomyopathy, unspecified; R93.1 Abnormal findings on diagnostic imaging of heart and coronary circulation; I34.0 Nonrheumatic mitral (valve) insufficiency
CPT/HCPCS: 93306

== ENCOUNTER → 2025-02-26 09:16 | Outpatient (BNVA) | payer MEDICARE, OTHER, SELFPAY | PROVIDERS: PCP Family Medicine; Visit Provider Nurse Practitioner Family | DX: L82.1 Other seborrheic keratosis (principal); L81.4 Other melanin hyperpigmentation; L57.8 Other skin changes due to chronic exposure to nonionizing radiation; Z08 Encounter for follow-up examination after completed treatment for malignant neoplasm; Z85.828 Personal history of other malignant neoplasm of skin; L82.0 Inflamed seborrheic keratosis; Z78.9 Other specified health status; L29.89 Other pruritus; L53.8 Other specified erythematous conditions; L91.8 Other hypertrophic disorders of the skin; R20.8 Other disturbances of skin sensation | CPT/HCPCS: 17110; 99213 ==

== ENCOUNTER → 2025-03-20 10:24 | Outpatient (BNVA) | payer MEDICARE, OTHER, SELFPAY | PROVIDERS: PCP Family Medicine; Visit Provider Family Medicine | DX: N39.0 Urinary tract infection, site not specified (principal) | CPT/HCPCS: 81000 ==